=== PATIENT | female | born 1960 | race Caucasian/White ===

== ENCOUNTER 2025-07-19 16:27 | Inpatient (IN) | payer MEDICARE, SELFPAY ==
--- OUTSIDE RECORDS SUMMARY | 2025-05-24 16:00 | XMS_ITS ---
Author Organization [facility] Address [address] [place] [phone] Care Team Providers Care Grinder Hand Name Role Phone NO, PCP Primary Care Provider [facility], Nursing Unavailable [phone] Migration, Provider Unavailable Unavailable Allergies Allergen (clinical [...] Active Encounters Encounter Location Date Provider Diagnosis [address] [address] 05/24/2025 Provider Migration Plan Of Treatment Medication Medication Name Sig Start Date Stop Date Notes Paxil 20 MG 1 tab(s) orally once a day Progress Notes * Kathy BETTS (Jeni): (65 yo F)Acc No.[id number]:05/24/2025 Patient: Kathy KEENE (Jeni) Provider: :1960 A ge:65 Y S ex:Female Date:05/24/2025 Address:[address] [place], [place] [id number] Pcp:PCP NO Subjective: * Chief Complaints: * 1 . Multum To Medispan Conversion Encounter. * Medical History: * Allergies: T RIPLE ATIBIOTIC CREAM: hives and blisters. Objective: * Vitals: Assessment: Plan: * Treatment: * Images: Billing Information: * Visit Code: * Procedure Codes: * Electronic signature of Prov ider Migration on 07/19/2025 at 07:54 PM EST Sign off status: Pending * Provider: Date: 0 05/24/2025 Generated for Zuleyma vega/Ange/Logan on: 1 09/18/2024 07:54 PM EST
--- OUTSIDE RECORDS SUMMARY | 2025-07-14 07:55 | XMS_ITS | Continuity of Care Document ---
Author Organization [facility] Address [address] [place] [phone] Care Team Providers Care Lumber Carrier Name Role Phone Not on Staff, PCP Primary Care Physician Unavail able [place] [facility] [place] - 07/14/[address] [address]- Discharge Disposition: A-D/C Walkout Attending Physician: Not on Staff, Attending MD Admitting Physician: Not on Staff, Admitting MD Referring Physician: Not on Staff, Referring MD Encounter Type: Disch ES Allergies, Adverse Reactions, Alerts Substance Criticality Severity Reaction Reaction Severity Status Bactrim Active traMADol itching Active Medications Codeine 30mg/Acetaminophen 300mg Tablet 1 tablet, By Mouth, 3 times a day, PRN Pain , Moderate, 0 Refills, Maintenance, 03/11/20 12:58:00 PM EDT Start Date: 03/11/20 Status: Ordered Medication Dispense Status: Completed Total Allowed Fills: 1 Fills Dispensed: 0 Excedrin Migraine oral tablet 2 tablet, By Mouth, one to two times daily as needed for migraines, 0 Refills, Maintenance, 03/19/20 1:37:00 PM EDT Start Date: 03/19/20 Status: Ordered Medication Dispense Status: Completed Total Allowed Fills: 1 Fills Dispensed: 0 Lasix 40 mg oral tablet 40 mg, 1, tablet, By Mouth, Daily, # 7 tablet, Refills 0, Tot. Refills 0, Maintenance, 07/13/25 3:52:00 AM EST, Route to Pharmacy Electronically, [facility]/pharmacy #[id number], Partial fill upon patient request if the prescription is for a schedule II opioid drug., 152, cm, 07/13/25 3:48:00 EST, Height, 65.7, kg, 07/13/25 3:48:00 EST, Dry Weight Start Date: 07/13/25 Stop Date: 07/20/25 Status: Ordered Medication Dispense Status: Completed Quantity: 7.0 Unit: tablet Total Allowed Fills: 1 Fills Dispensed: 0 metFORMIN 500 mg oral tablet 1 tablet = 500 mg, By Mouth, 2 times a day, # 60 tablet, 0 Refills, Maintenance, 07/10/25 8:08:00 AM EDT, Tablet, [facility], Partial fill upon patient request if the prescription is for a schedule II opioid drug., 165, cm, 07/09/25 20:11:00 EDT, Height, 67, kg, 07/09/25 20:11:00 EDT,Dry Weight Start Date: 07/10/25 Status: Ordered Medication Dispense Status: Completed Quantity: 60.0 Unit: tablet Total Allowed Fills: 1 Fills Dispensed: 0 metFORMIN 500 mg oral tablet 1 tablet = 500 mg, By Mouth, 2 times a day, with meals, # 60 tablet, 0 Refills, Maintenance, 07/02/25 3:00:00 PM EDT, Tablet, [id number], Partial fill upon patient request if the prescription is for a schedule II opioid drug., 164, cm, 07/02/25 14:22:00 EDT, Height, 64.3, kg, 07/02/25 14:22:00 EDT, Dry Weight Start Date: 07/02/25 Status: Ordered Medication Dispense Status: Completed Quantity: 60.0 Unit: tablet Total Allowed Fills: 1 Fills Dispensed: 0 Mental Status Mental Status Assessment Assessment Assessment Component Result Effecti ve Date Andi coma score total 15 07/13/25 Vital Signs Most recent to oldest [Reference Range]: 1 2 Height 153 cm (07/13/25 11:07 PM) 153 cm (07/13/25 11:04 PM) Weight 65 kg (07/13/25 11:07 PM) 65 kg (07/13/25 11: PM) Oxygen Saturation [94-100 %] 99 % (07/14/25 3:02 AM) 100 % (07/13/25 11: PM) Pulse Rate [55-90 bpm] 95 bpm *H* (07/14/25 3:02 AM) 91 bpm *H* (07/13/25 11:04 PM) Body Mass Index [18.5-24.99 kg/m2] 27.77 kg/m2 *H* (07/13/25 11:04 PM) Blood Pressure [90-138/55-84 mm Hg] 141/ 83mm Hg *H* (07/14/25 3:02 AM) 129/86mm Hg (07/13/25 11:04 PM) Respiratory Rate [16-30 br/min] 16 br/mi n (07/14/25 3:02 AM) 18 br/min (07/13/25 11:04 PM) Temperature [96.8-100.4 DegF] 97.9 DegF (07/14/25 3:02 AM) 97.5 DegF (07/13/25 11:04 PM) Mode of Delivery (Oxygen) Room air (07/14/25 3:02 AM) Room air (07/13/25 11:04 PM) Blood pressure sites Arm, right (07/14/25 3:02 AM) Arm, left (07/13/25 11:04 PM) Temperature Route Oral (07/14/25 3:02 AM) Oral (07/13/25 11:04 PM) Dry Weight 65 kg (07/13/25 11:07 PM) 65 kg (07/13/25 11:04 PM) Weight Obtained Via Patient/family state d (07/13/25 11:07 PM) Standing scale (07/13/25 11:04 PM) Dry Weight Obtained Via Standing scale (07/13/25 11:04 PM) Social History Social History Type Response Smoking Status Former smoker, quit more than 30 days ago entered on: 07/03/25 Sex Sex Representation Female (finding) Status Not Patient Care team information Care Team Personnel Name: Not on Staff, PCP Position: S Physician (General Medicine) Member Role: PCP Care Team Related Persons Name: LORI BHATT Insurance Providers Guarantor name: CARLITA Health Plan Information #: 1 Payer: [employer] Payer Identifier: CARLITA Member Number: [id number] Group Number: [id number] Subscriber Identifier: [id number] Relationship to Subscriber: self Coverage Type: Self-pay (Includes applicants for insurance and Medicaid applicants) Coverage Verification Date: CARLITA Telecom: CARLITA Address:
--- NOTE | ~2025-07-19 | XR_ITS ---
CLINICAL HISTORY: weakness 2 view chest x-ray. Comparison: None Findings: No consolidation or effusion. Cardiac and mediastinal contours are unremarkable. Bones unremarkable. Impression: 1. No acute pulmonary disease. This document has been electronically signed by: Raymond Gonsalez MD on 07/19/2025 17:28:57
[2025-07-19 16:42] VITALS: BP 157/79; PULSE 102; RESP 18; TEMP 36.7; O2SAT 99; BMI 27.6
--- NOTE | 2025-07-19 16:47 | ECG_ITS ---
Test Reason : EXTREMITY Blood Pressure : */* mmHG Vent. Rate : 104 BPM Atrial Rate : 104 BPM P-R Int : 172 ms QRS Dur : 72 ms QT Int : 346 ms P-R-T Axes : 43 1 4 degrees QTcB Int : 454 ms Sinus tachycardia Possible Lateral infarct , age undetermined Abnormal ECG No previous ECGs available Referred By: Lawrence Arana Electronically Signed By: Nathanael Grajeda
--- NOTE | 2025-07-19 16:47 | ED.GENADULT ---
HPI - General Adult General Chief complaint: Extremity Problem Stated complaint: both legs swollen/feet hurt/diabetic Time Seen by Provider: 07/19/25 19:28 Source: patient and family ( Son) Mode of arrival: ambulatory Limitations: no limitations History of Present Illness ED Provider: DR. Sam HPI narrative: 65-year-old female brought in with her son for evaluation of bilateral ankle edema that is been going for the past month and worsening over the past 2 3 days, no shortness of breath, no pnd, no orthopnea, no fever, no chills, no coughing, no chest pain, no abdominal pain, no nausea, no vomiting, no diarrhea, no skin redness or hotness anywhere, no CP. Patient reports intermittent dysuria with frequency urination. Patient was recently diagnosed with diabetes and was recently started on metformin but noticed that her blood sugar is still running high. Related Data Home Medications ?Medication ?Instructions ?Recorded ?Confirmed metformin 500 mg tablet 500 mg PO BID 07/20/25 07/20/25 Allergies Allergy/AdvReac Type Severity Reaction Status Date / Time No Known Allergies Allergy Verified 07/19/25 16:45 Review of Systems Review of Systems: All other systems are reviewed and are negative Constitutional: Reports as per HPI and Reports no additional constitutional complaints Eyes: Reports as per HPI and Reports no additional eye complaints Reports system reviewed and no additional complaints, except as documented Cardiovascular: Reports as per HPI and Reports no additional cardiovascular complaints Respiratory: Reports as per HPI and Reports no additional respiratory complaints Gastrointestinal: Reports as per HPI and Reports no additional gastrointestinal complaints Genitourinary: Reports no additional female genitourinary complaints Musculoskeletal: Reports no additional musculoskeletal complaints Skin/Breast: Reports system reviewed and no additional complaints, except as docu Psychiatric: Reports no additional psychiatric complaints Endocrine: Reports no additional endocrine complaints Hematologic/Lymphatic: Reports no additional hematologic/lymphatic complaints Allergic/Immunologic: Reports no additional allergic/immunologic complaints Reports system reviewed and no additional complaints, except as documented and Reports Abnormal speech present [facility] Social History Social History Household Members: None Housing: Homeless Do you presently have visiting nurse or other home services: No Patient Tobacco Use Status: Former Tobacco user Smoked in Last 30 Days: No Patient Interested in Nicotine Replacement: No Use of substances other than those prescribed or required for medical reasons: No Currently Displaying Signs/Symptoms of Drug Intoxication Withdrawal: No Have you been hit, kicked, punched, or otherwise hurt by someone within the past year? If so, by whom?: No Do you feel safe in your current relationship?: No Current Relationship Is there a partner from a previous relationship who is making you feel unsafe now?: No Are you made to feel afraid or neglected: No Advance Directives: No Advance Directives Information Provided: No Do you have a plan to hurt others: No Plan Recently lost weight without trying: No Nutrition Risks: No Nutritional Risk Patient : No : No Poor oral hygiene: No service: No Physical Exam ED Vital Signs: Vital Signs - 24 hr 07/19/25 16:42 07/19/25 20:15 Temperature 98.0 F 98.2 F Pulse Rate 102 H 96 Respiratory Rate 18 16 Blood Pressure 157/79 H 130/74 Pulse Oximetry 99 97 Oxygen Delivery Method Room Air Room Air BMI result Body Mass Index 27.6 Vital signs have been reviewed and appear to be correct. Blood pressure elevated. Heart rate elevated. Respiratory rate normal. Temperature normal. Oxygen saturation normal. Appearance: Alert. Oriented X3. No acute distress. Head: Normal external exam. Normocephalic. Atraumatic. No Gonzalez signs noted. No raccoon eyes noted Eyes: PERRLA. EOMI. Conjunctiva and sclera normal. Eyelids normal. ENT: TM's Normal. Pharynx normal. Uvula midline. Moist mucous membranes. No trismus noted. No drooling noted. No muffled voice noted. Neck: Normal inspection. Neck supple. FROM. No adenopathy. Thyroid Normal. No meningeal signs. No neck mass noted. CVS: Normal heart rate and rhythm. Heart sound normal. No murmurs noted. Pulses normal throughout. Respiratory: No respiratory distress. Painless inspiration. Breath sounds normal. No wheezes/rales/rhonchi noted. Chest nontender. No accessory muscle usage noted or decreased air movement noted. Abdomen: Soft and nontender. Bowel sounds normal in all 4 quadrants. No distention noted. No organomegaly noted. No visible injury noted. Back: No CVA tenderness. Full range of motion noted. Skin: Skin warm and dry. Normal skin color. Normal skin turgor. No rashes/lesions/lacerations noted. Extremities: No lower extremity edema. Extremities exhibit normal range of motion. Extremities nontender. Neuro: Oriented X 3. Cranial nerve exam: II-XII are grossly intact No motor deficit. No sensory deficit. Reflexes normal. Course Course Course Narrative: Medical screening exam performed. Please refer to detailed history, exam, evaluation, and management by primary provider. Progress of the worsening lower extremity edema. No dyspnea on exertion. Hemodynamically stable at this time. Check labs, imaging; JS 5:37 p.m. glucose 379, lactic acid of 2.5. Reevaluation(s) Reevaluation #1: 65-year-old female presented for bilateral lower extremity swelling. Negative chest x-ray and exam for CHF. Uncontrolled newly diagnosed type 2 diabetes will start IV fluids, no DKA. UTI with sirs criteria and severe sepsis of elevated lactic acidosis patient received ceftriaxone and IV fluids will order serial lactic acid. Admit for further monitoring and manage diabetes and sepsis. Time: 21:00 Medications Administered Generic Name Dose Route Start Last Admin Trade Name Freq PRN Reason Stop Dose Admin Cyanocobalamin 1,000 mcg 07/21/25 09:00 07/21/25 08:34 Cyanocobalamin (Vitamin B-12) 1,000 Mcg Tablet PO 1,000 mcg DAILY [facility] Administration Enoxaparin Sodium 40 mg 07/19/25 21:00 07/20/25 20:08 Enoxaparin Sodium 40 Mg/0.4 Ml Syringe SUBCUT 40 mg Q24H [facility] Administration Folic Acid 1 mg 07/21/25 09:00 07/21/25 08:34 Folic Acid 1 Mg Tablet PO 1 mg DAILY [facility] Administration Ceftriaxone Sodium 1 gm/ 50 mls @ 100 mls/hr 07/20/25 20:00 07/20/25 20:38 Sodium Chloride IV Infused Q24H [facility] Infusion Insulin Glargine 10 unit 07/19/25 21:00 07/20/25 20:07 Insulin Glargine,Hum.Rec.Anlog 100 Unit/Ml 10 Ml Vial SUBCUT 10 unit BEDTIME [facility] Administration Insulin Human Lispro 0 unit 07/19/25 21:00 07/21/25 07:38 Insulin Lispro 100 Unit/Ml 3 Ml Vial SUBCUT 2 unit QIDACHS [facility] Administration Protocol Magnesium Oxide 400 mg 07/21/25 08:30 07/21/25 08:34 Magnesium Oxide 400 Mg Tablet PO 400 mg BIDPC [facility] Administration Oxycodone HCl 5 mg 07/20/25 02:42 07/21/25 08:34 Oxycodone Hcl Immed Release 5 Mg Tablet PO 5 mg Q6H PRN Administration Pain, Severe (Pain Scale 7-10) Pregabalin 50 mg 07/20/25 09:00 07/21/25 08:34 Pregabalin 50 Mg Capsule PO 50 mg TID [facility] Administration Sodium Chloride 3 ml 07/20/25 00:00 07/21/25 07:32 0.9 % Sodium Chloride Flush 3 Ml Syringe IVFLUSH 3 ml QSHIFT [facility] Administration Discontinued Medications Generic Name Dose Route Start Last Admin Trade Name Freq PRN Reason Stop Dose Admin Ceftriaxone Sodium 1 gm/ 50 mls @ 100 mls/hr 07/19/25 19:44 07/19/25 20:33 Sodium Chloride IV 07/19/25 20:13 Infused ONCE ONE Infusion Lactated Ringer's 1,000 mls @ 999 mls/hr 07/19/25 19:45 07/19/25 21:18 Lr IV 07/19/25 20:45 Infused .Q1H1M [facility] Infusion Lactated Ringer's 1,000 mls @ 100 mls/hr 07/19/25 21:00 07/20/25 08:27 Lr IVCONT Infused .Q10H [facility] Infusion Acetaminophen 1,000 mg in 100 mls @ 400 mls/hr 07/19/25 21:10 07/19/25 21:43 Ofirmev IV 07/19/25 21:24 Infused ONCE ONE Infusion Magnesium Sulfate 2 gm in 50 mls @ 25 mls/hr 07/21/25 07:02 07/21/25 07:27 Magnesium Sulfate/H2o IV 07/21/25 09:01 25 mls/hr ONCE ONE Administration Potassium Chloride 40 meq 07/20/25 08:25 07/20/25 08:34 Potassium Chloride Er 20 Meq Tab.Er.Prt PO 07/20/25 08:26 40 meq ONCE ONE Administration Medical Decision Making Differential Diagnosis Differential Diagnoses: The differential diagnosis associated with the presentation includes ( DKA, hyperglycemia, sepsis, pneumonia, UTI, pyelonephritis, electrolyte derangement, severe anemia, CHF, ACS.) Admission/Observation Consideration of admission/observation: Escalation of care including admission/observation considered Consult Healthcare Provider Management of the patient was discussed with: Hospitalist ( Dr. Leblanc) Lab Data MDM Lab Attestation statement: I reviewed the patient's lab results. 07/21/25 05:53 07/21/25 05:53 Labs: Lab Results 07/19/25 07/19/25 07/19/25 Range/Units 17:05 17:06 17:07 WBC 14.7 H (4.8-10.8) X10*3/uL RBC 5.14 (4.20-5.50) X10*6/uL Hgb 14.9 (12.0-16.0) g/dl Hct 43.2 (37.0-47.0) % MCV 84.0 (80.0-98.0) fL MCH 29.0 (27.0-33.0) pg MCHC 34.5 (31.0-35.0) g/dl RDW 12.6 (11.0-16.0) % Plt Count 334 (160-400) X10*3/uL MPV 10.9 (9.4-12.3) fL Immature Gran % (Auto) 0.4 (0.0-0.4) % Neut % (Auto) 67.5 (45-73) % Lymph % (Auto) 28.1 (20-40) % Page % (Auto) 3.2 (2-11) % Eos % (Auto) 0.5 (0-4) % Baso % (Auto) 0.3 (0-2) % Lymph # (Auto) 4.1 (1.2-4.9) X10*3/uL Page # (Auto) 0.5 (0.1-1.2) X10*3/uL Eos # (Auto) 0.1 (0.0-0.4) X10*3/uL Baso # (Auto) 0.1 (0.0-0.2) X10*3/uL Abs Immat Gran (auto) 0.06 H (0.00-0.03) X10*3/uL Absolute Neuts (auto) 9.9 H (2.0-8.3) x10*3/uL Absolute Nucleated RBC 0.000 (0.0-0.012) X10*3/uL Nucleated RBC % (auto) 0.0 (0.0-0.2) /100WBC Sodium 135 (135-145) mmol/L Potassium 3.4 (3.3-5.1) mmol/L Chloride 96 (96-108) mmol/L Carbon Dioxide 25 (22-29) mmol/L Anion Gap 17 (12-20) BUN 15 (9-16) mg/dL Creatinine 0.63 (0.5-1.4) mg/dL Estim Creat Clear Calc 74.4 Estimated GFR > 60 Random Glucose 379 H* (60-115) mg/dL Lactic Acid 2.5 H* (0.5-2.0) mmol/L Lactic Acid F/U @ 2Hr (0.5-2.0) mmol/L Calcium 9.7 (8.4-10.2) mg/dL Total Bilirubin 0.3 (0.0-1.0) mg/dL AST 18 (5-31) U/L ALT 24 (0-31) U/L Alkaline Phosphatase 87 (39-117) U/L Troponin I High Sens < 2.7 (<3.5-17.0) ng/L NT-Pro-B Natriuret Pep 16.4 (<300) pg/mL Total Protein 8.2 H (6.5-8.0) g/dL Albumin 4.9 (3.5-5.0) g/dL Lipase 74 (8-78) U/L Beta-Hydroxybutyrate 0.13 (0.02-0.27) mmol/L Urine Color Yellow Urine Appearance Clear Urine pH 5.5 (5.0-9.0) Ur Specific Wakeman >= 1.030 H (1.005-1.025) Urine Protein Negative (Neg-Trace) mg/dL Urine Glucose (UA) >=1000 H (Negative) mg/dL Urine Ketones Negative (Negative) mg/dL Urine Blood Negative (Negative) Urine Nitrite Negative (Negative) Ur Leukocyte Esterase Small (1+) H (Negative) Urine RBC 0-2 (0-2) /HPF Urine WBC 21-50 H (0-5) /HPF Ur Squamous Epith Cells 0-2 (0-2) /HPF Urine Bacteria 1+ (None Seen) Hyaline Casts 0-2 (0-2) /LPF 07/19/25 Range/Units 19:46 WBC (4.8-10.8) X10*3/uL RBC (4.20-5.50) X10*6/uL Hgb (12.0-16.0) g/dl Hct (37.0-47.0) % MCV (80.0-98.0) fL MCH (27.0-33.0) pg MCHC (31.0-35.0) g/dl RDW (11.0-16.0) % Plt Count (160-400) X10*3/uL MPV (9.4-12.3) fL Immature Gran % (Auto) (0.0-0.4) % Neut % (Auto) (45-73) % Lymph % (Auto) (20-40) % Page % (Auto) (2-11) % Eos % (Auto) (0-4) % Baso % (Auto) (0-2) % Lymph # (Auto) (1.2-4.9) X10*3/uL Page # (Auto) (0.1-1.2) X10*3/uL Eos # (Auto) (0.0-0.4) X10*3/uL Baso # (Auto) (0.0-0.2) X10*3/uL Abs Immat Gran (auto) (0.00-0.03) X10*3/uL Absolute Neuts (auto) (2.0-8.3) x10*3/uL Absolute Nucleated RBC (0.0-0.012) X10*3/uL Nucleated RBC % (auto) (0.0-0.2) /100WBC Sodium (135-145) mmol/L Potassium (3.3-5.1) mmol/L Chloride (96-108) mmol/L Carbon Dioxide (22-29) mmol/L Anion Gap (12-20) BUN (9-16) mg/dL Creatinine (0.5-1.4) mg/dL Estim Creat Clear Calc Estimated GFR Random Glucose (60-115) mg/dL Lactic Acid (0.5-2.0) mmol/L Lactic Acid F/U @ 2Hr 2.7 H* (0.5-2.0) mmol/L Calcium (8.4-10.2) mg/dL Total Bilirubin (0.0-1.0) mg/dL AST (5-31) U/L ALT (0-31) U/L Alkaline Phosphatase (39-117) U/L Troponin I High Sens (<3.5-17.0) ng/L NT-Pro-B Natriuret Pep (<300) pg/mL Total Protein (6.5-8.0) g/dL Albumin (3.5-5.0) g/dL Lipase (8-78) U/L Beta-Hydroxybutyrate (0.02-0.27) mmol/L Urine Color Urine Appearance Urine pH (5.0-9.0) Ur Specific Wakeman (1.005-1.025) Urine Protein (Neg-Trace) mg/dL Urine Glucose (UA) (Negative) mg/dL Urine Ketones (Negative) mg/dL Urine Blood (Negative) Urine Nitrite (Negative) Ur Leukocyte Esterase (Negative) Urine RBC (0-2) /HPF Urine WBC (0-5) /HPF Ur Squamous Epith Cells (0-2) /HPF Urine Bacteria (None Seen) Hyaline Casts (0-2) /LPF Independent Interpretation I performed an independent interpretation of an: Plain X-Ray ( chest: No acute intrathoracic pathology.) Radiology Impression Discussion of test interpretation with radiology: I have reviewed the radiologist's reading. Critical Care Time Critical Care Time Critical Care Time: Yes Total Critical Care Time: 60 Attestation: The patient was critically ill with a high probability of imminent or life-threatening deterioration. I spent greater than 30 minutes of discontinuous time evaluating the patient, delivering critical care at the bedside, discussing evaluating data with consultants. Critical care time does not include time spent performing separately billable procedures or teaching. Time spent performing critical care was 60 minutes. Discharge Plan Discharge Clinical Impression: Acute hyperglycemia, Acute UTI, Sepsis Patient Disposition: Admitted As Inpatient Interventions: Admission Worksheet (ED) Last Done: 07/19/25 23:59 Discharge Date/Time: 07/20/25 00:27
[2025-07-19 17:16] LABS: MANUAL DIFF FLAG NO
[2025-07-19 17:17] LABS: Hematocrit 43.2 % (37.0-47.0); Hemoglobin 14.9 g/dl (12.0-16.0); Imm Gran Abs Auto 0.06 X10*3/uL (0.00-0.03); Imm Gran Pct Auto 0.4 % (0.0-0.4); Lymphocytes Absolute Auto 4.1 X10*3/uL (1.2-4.9); Mean Corpuscular HGB Conc 34.5 g/dl (31.0-35.0); Mean Corpuscular Hemoglobin 29.0 pg (27.0-33.0); Mean Corpuscular Volume 84.0 fL (80.0-98.0); NRBC Abs Auto 0.000 X10*3/uL (0.0-0.012); NRBC Pct Auto 0.0 /100WBC (0.0-0.2); Platelet Count 334 X10*3/uL (160-400); Red Blood Count 5.14 X10*6/uL (4.20-5.50); White Blood Count 14.7 X10*3/uL (4.8-10.8)
[2025-07-19 17:27] LABS: Appearance Urine Clear; Glucose Urine UA >=1000 mg/dL (Negative); PH 5.5 (5.0-9.0); Specific Gravity - Urine >= 1.030 (1.005-1.025); UMIC TRIGGER UA YES
[2025-07-19 17:36] LABS: Alanine Aminotransferase 24 U/L (0-31); Albumin Level 4.9 g/dL (3.5-5.0); Alkaline Phosphatase 87 U/L (39-117); Anion Gap 17 (12-20); Aspartate Amino Transferase 18 U/L (5-31); Blood Urea Nitrogen 15 mg/dL (9-16); Calcium 9.7 mg/dL (8.4-10.2); Carbon Dioxide 25 mmol/L (22-29); Chloride 96 mmol/L (96-108); Creatinine Clr Calc Pharmacy 74.4; Estimated Glomerular Filt Rate > 60; Lipase 74 U/L (8-78); Potassium 3.4 mmol/L (3.3-5.1); Sodium 135 mmol/L (135-145); Total Protein 8.2 g/dL (6.5-8.0)
[2025-07-19 17:39] LABS: NT Pro B Type Natriuretic Pept 16.4 pg/mL (<300)
[2025-07-19 17:50] LABS: Troponin-I High Sensitivity < 2.7 ng/L (<3.5-17.0)
[2025-07-19 19:14] LABS: Reflex Lactate? Lactic Acid Added
--- OUTSIDE RECORDS SUMMARY | 2025-07-19 19:55 | XMS_ITS | Encounter Summary ---
Author Organization [facility], Address [address] [place] [address] Phone Care Team Providers Care Grinder Hardboard Name Role Phone Herberth Gutierrez MD Primary Care Provider [phone] Encounter Details Date Type Department Care Team (Late st Contact Info) Description 03/02/2020 Telephone [facility] [address] [place] [address] Ema Colin [address] [place] [phone] Social History Tobacco Use Types Packs/Day Years Used Date Smoking Tobacco: Never Assessed Comments Unknown Sex and Gender Information Value Date Recorded Sex Assigned at Not on file Legal Sex Female 1:31 PM EDT Gender Identity Not on file Sexual Orientation Not on file documented as of this encounter Plan of Treatment Not on file documented as of this encounter Visit Diagnoses Not on filedocumented in this encounter Care Teams Grinder Hardboard Relationship Specialty Start Date End Date Herberth Gutierrez MD [facility] [address] [place] [address] [address] [place], [place] PCP - General Internal Medicine 03/10/20 documented as of this encounter
--- OUTSIDE RECORDS SUMMARY | 2025-07-19 19:55 | XMS_ITS | Patient Health Record ---
Author Organization [facility] Address [address] [place] [address] Care Team Providers Care Tire And Tube Repairer Name Role Phone NO, PCP Primary Care Provider [phone] [facility], Nursing Unavailable [phone] [facility], W Unavailable [phone] Migration, Provider Unavailable Unavailable Allergies Allergen (clinical drug ingredient) Drug/Non Drug Allergy documented on EMR Reaction Allergy Type Onset Date Status TRIPLE ATIBIOTIC CREAM (uncoded) hives and blisters Allergy Active Reason For Referral No Information Medications Medication SIG (Take, Route, Frequency, Duration) Notes Start Date End Date Status Paxil 20 MG 1 tab(s) orally once a day Active Encounters Encounter Location Date Provider Diagnosis [address] [address] 07/07/[address] [address] 05/24/2025 Provider Migration Plan Of Treatment No Information Insurance Providers Payer Name Payer Address Payer Phone Subscriber Number Group Number Insured Name Patient Relationship to Insured Coverage Start Date Coverage End Date [place] Medicare Part A [employer] [address] [place] [address] [id number] Kathy Betts (Jeni) Self - patient is the insured 5 6 Medical (General) History Medical History History ICD Code depression
--- OUTSIDE RECORDS SUMMARY | 2025-07-19 19:55 | XMS_ITS | Clinical Summary ---
Author Organization [facility] Address [address] [place] [phone] Phone Care Team Providers Care Coffee Urn Attendant Name Role Phone Physician, No Pcp Primary Care Provider Unavaila ble Allergies No known active allergies Medications doxycycline (ADOXA) 100 mg tablet Take 1 tablet (100 mg total) by mouth 2 (two) times a day for 10 days. Take with a full glass of water and do not lie down for at least 30 minutes after 20 each 07/09/2025 Active Active Problems No known active problems Encounters Date Type Department Care Team Description 07/10/2025 9:17 PM EDT - 07/10/2025 10:[address] [facility] Emergency [address] [place] [address] Acute nonintractable headache, unspecified headache type (Primary Dx) Discharge Disposition: Home or Self Care 07/08/2025 7:51 PM EDT - 07/09/2025 12:51 AM EDT [facility] Emergency [address] [place] [id number] Type 2 diabetes mellitus with hyperglycemia, without long-term current use of insulin ([facility] V24, [facility] V28) (Primary Dx); Homeless; Cellulitis of right toe Discharge Disposition: Home or Self Care from Last 3 Months Medical History Medical History Date Comments Diabetes mellitus ([facility] V24, [facility] V28) Social History Tobacco Use Types Packs/Day Years Used Date Smoking Tobacco: Never Smokeless Tobacco: Never Tobacco Cessation:Counseling Given: Not Answered Comments Unknown Sex and Gender Information Value Date Recorded Sex Assigned at Not on file Legal Sex Female 11:32 PM EST Gender Identity Not on file Sexual Orientation Not on file Obstetrics History Last Filed Vital Signs Vital Sign Reading Time Taken Comments Blood Pressure 137/72 07/10/2025 9:15 PM EDT Pulse 95 07/10/2025 9:15 PM EDT Temperature 36.6 C (97.9 F) 07/10/2025 9:15 PM EDT Respiratory Rate 16 07/10/2025 9:15 PM EDT Oxygen Saturation 99% 07/10/2025 9:15 PM EDT Inhaled Oxygen Concentration - - Weight 65.8 kg (145 lb) 07/10/2025 9:15 PM EDT Height 160 cm (5' 2.99 ) 07/10/2025 9:15 PM EDT Body Mass Index 25.69 07/10/2025 9:15 PM EDT Plan of Treatment Health Maintenance Due Date Last Done Comments Breast Cancer Screening 1960 Colorectal Cancer Screening: Colonoscopy 1960 Diabetes: Annual Foot Exam 1970 Diabetes: Annual Retina Eye Exam 1970 DTaP,Tdap,and Td Vaccines (1 - Tdap) 1979 Pneumococcal Vaccine: 50+ Ye ars (1 of 2 - PCV) 1979 Cervical Cancer Screening: P ap Smear 1981 Zoster Vaccines (1 of 2) 2010 Depression Screening 09/11/2024 COVID-19 Vaccine (1 - 2023-2 5 season) 2025 Influenza Vaccine (#1) 2025 Cholesterol Screening (Lipid Panel) 07/08/2025 Diabetes: Annual Urine Albumin-Creatinine Ratio (uACR) 07/08/2025 Diabetes: Blood Sugar Contro l Test (HGBA1C) 07/08/2025 Falls Risk Assessment 07/08/2025 Hepatitis C Screening 07/08/2025 Medicare Annual Wellness Visit 07/08/2025 Osteoporosis Screening (Bone Density Screening) 07/08/2025 Social Influencers of Health Screening 07/08/2025 Diabetes: Annual GFR (Glomer ular Filtration Rate) 07/08/2026 07/08/2025 RSV Immunization Adult Patie nts (1 - 1-dose 75+ series) 2035 HIB Vaccines Aged Out No longer eligi ble based on patient's age to complete this topic HPV Vaccines Aged Out No longer eligi ble based on patient's age to complete this topic Hepatitis A Vaccines Aged Out No long er eligible based on patient's age to complete this topic Hepatitis B Vaccines Aged Out No long er eligible based on patient's age to complete this topic IPV Vaccines Aged Out No longer eligi ble based on patient's age to complete this topic MMR Vaccines Aged Out No longer eligi ble based on patient's age to complete this topic Meningococcal ACWY Vaccine Aged Out N o longer eligible based on patient's age to complete this topic Meningococcal B Vaccine Aged Out No l onger eligible based on patient's age to complete this topic RSV Immunization Patients Un heriberto 20 months Aged Out No longer eligible b ased on patient's age to complete this topic Varicella Vaccines Aged Out No longer eligible based on patient's age to complete this topic Procedures Procedure Name Priority Date/Time Associated Diagnosis Comments ECG ANNOTATED 07/11/2025 ECG 12-LEAD STAT 07/10/2025 9:27 PM EDT POCT GLUCOSE BLOOD Routine 07/09/2025 12 :01 AM EDT URINALYSIS WITH REFLEX MICROSCOPIC STAT 07/08/2025 11:59 PM EDT URINALYSIS WITH REFLEX MICROSCOPIC STAT 07/08/2025 11:59 PM EDT POCT GLUCOSE BLOOD Routine 07/08/2025 10 :13 PM EDT CBC WITH AUTO DIFFERENTIAL STAT 07/08/2025 8:30 PM EDT BETA HYDROXYBUTYRATE STAT 07/08/2025 8:30 PM EDT OSMOLALITY STAT 07/08/2025 8:30 PM EDT MAGNESIUM STAT 07/08/2025 8:30 PM EDT LIPASE STAT 07/08/2025 8:30 PM EDT COMPREHENSIVE METABOLIC PANEL STAT 07/08/2025 8:30 PM EDT CBC AND DIFFERENTIAL STAT 07/08/2025 8:30 PM EDT POCT GLUCOSE BLOOD Routine 07/08/2025 7: 53 PM EDT from Last 3 Months Results * ECG-Annotated (07/11/2025) us Provider Onbase MD ECG ORDERABLES Final Result * ECG 12 lead (07/10/2025 9:27 PM EDT) Ventricular Rate ECG 101 BPM GEMUSE Atrial Rate 101 BPM GEMUSE P-R Interval 192 ms GEMUSE QRS Duration 74 ms GEMUSE Q-T Interval 360 ms GEMUSE QTc 466 ms GEMUSE P Wave [place] 41 degrees GEMUSE R [place] 18 degrees GEMUSE T [place] 28 degrees GEMUSE ECG Interpretation Sinus tachycardia Otherwise normal ECG No previous ECGs available Confirmed by MD Sebastian, Dipak ([id number]) on 07/11/2025 9:09:24 PM GEMUSE 07/10/2025 9:27 PM EDT 07/11/2025 9:09 PM EDT Rae [facility] ECG ORDERABLES Final Re sult GEMUSE * (ABNORMAL) POCT Glucose, blood (07/09/2025 12:01 AM EDT) Only the most recent of3 resultswithin the time period is included. Glucose POCT 288(H) 70 - 100 mg/dL 07/09/2025 12:02 AM EDT [facility] Blood Capillary blood specimen / Unknown 07/09/2025 12:01 AM EDT 07/09/2025 12:03 AM EDT us Generic Provider Poct LAB POINT OF CARE TEST DOCKED DEVICE UNSOLICITED RESULTS Final Result [facility] [address] [place] [address], [place] [phone] * (ABNORMAL) Urinalysis with reflex microscopic (07/08/2025 11:59 PM EDT) Specific [place] Urine 1.021 1.003 - 1.030 LAB URINALYSIS - AUTOMATED METHOD 07/09/2025 12:50 AM [facility] pH, Urine 6.0 5.0 - 8.0 pH LAB URINALYSIS - AUTOMATED METHOD 07/09/2025 12:50 AM [facility] Leukocytes, Urine Moderate(A) Negative LAB URINALYSIS - AUTOMATED METHOD 07/09/2025 12:50 AM [facility] Nitrite, Urine Negative Negative LAB URINALYSIS - AUTOMATED METHOD 07/09/2025 12:50 AM [facility] Protein, Urine Negative <=Trace mg/dL LAB URINALYSIS - AUTOMATED METHOD 07/09/2025 12:50 AM [facility] Glucose, Urine >=1000(A) Negative mg/dL LAB URINALYSIS - AUTOMATED METHOD 07/09/2025 12:50 AM [facility] Ketones, Urine Negative Negative mg/dL LAB URINALYSIS - AUTOMATED METHOD 07/09/2025 12:50 AM [facility] Urobilinogen , Urine 1.0 0.2 - 1.0 mg/dL LAB URINALYSIS - AUTOMATED METHOD 07/09/2025 12:50 AM [facility] Bilirubin, Urine Negative Negative LAB URINALYSIS - AUTOMATED METHOD 07/09/2025 12:50 AM [facility] Blood, Urine Negative Negative LAB URINALYSIS - AUTOMATED METHOD 07/09/2025 12:50 AM [facility] RBC, Urine 1.8 0 - 4 /HPF LAB URINALYSIS - AUTOMATED METHOD 07/09/2025 12:50 AM [facility] WBC, Urine 31.7(H) 0 - 4 /HPF LAB URINALYSIS - AUTOMATED METHOD 07/09/2025 12:50 AM EDT [facility] Squamous Epithelial, Urine 63(H) 0 - 60 /LPF LAB URINALYSIS - AUTOMATED METHOD 07/09/2025 12:50 AM EDT [facility] Bacteria, Urine Few(A) Negative /HPF LAB URINALYSIS - AUTOMATED METHOD 07/09/2025 12:50 AM EDT [facility] Hyaline Casts, Urine 1.6 0 - 3 /LPF LAB URINALYSIS - AUTOMATED METHOD 07/09/2025 12:50 AM EDT [facility] Urine Urine specimen obtained by clean catch procedure / Unknown Non-blood Collection / Unknown 07/08/2025 11:59 PM EDT 07/09/2025 12:31 AM EDT [facility] LAB URINE ORDERABLES Fin al Result Performing Organization Address City/[facility]/ZIP Co de Phone Number [facility] [address] [place] [address], [place] [phone] * Beta hydroxybutyrate (07/08/2025 8:30 PM EDT) [facility] Beta-Hydroxybu tyrate 1.7 0.2 - 2.8 mg/dL LAB CHEMISTRY METHOD 07/08/2025 9:12 PM EDT [facility] Blood Venous blood specimen / Unknown Venipuncture / Unknown 07/08/2025 8:30 PM EDT 07/08/2025 8:34 PM EDT [facility] LAB BLOOD ORDERABLES Fin al Result [facility] [address] [place] [address], [place] [phone] * (ABNORMAL) CBC auto differential (07/08/2025 8:30 PM EDT) [facility] WBC 15.3(H) 4.8 - 10.8 K/[facility] LAB HEMETOLOGY METHOD 07/08/2025 8:39 PM [facility] RBC 4.80 3.80 - 4.80 M/mcL LAB HEMETOLOGY METHOD 07/08/2025 8:39 PM [facility] Hemoglobin 14.2 11.5 - 16.0 g/dL LAB HEMETOLOGY METHOD 07/08/2025 8:39 PM [facility] Hematocrit 40.3 35.0 - 47.0 % LAB HEMETOLOGY METHOD 07/08/2025 8:39 PM [facility] MCV 83.8 79.0 - 98.0 FL LAB HEMETOLOGY METHOD 07/08/2025 8:39 PM [facility] MCH 29.5 27.0 - 32.0 pcg LAB HEMETOLOGY METHOD 07/08/2025 8:39 PM [facility] MCHC 35.2 32.0 - 37.0 g/dL LAB HEMETOLOGY METHOD 07/08/2025 8:39 PM [facility] RDW 12.1 11.0 - 15.0 % LAB HEMETOLOGY METHOD 07/08/2025 8:39 PM [facility] Platelets 292 130 - 400 K/[facility] LAB HEMETOLOGY METHOD 07/08/2025 8:39 PM [facility] MPV 10.9 7.0 - 11.0 FL LAB HEMETOLOGY METHOD 07/08/2025 8:39 PM [facility] NRBC 0.0 <1.0 % LAB HEMETOLOGY METHOD 07/08/2025 8:39 PM [facility] NRBC Absolute 0.00 <0.10 K/[facility] LAB HEMETOLOGY METHOD 07/08/2025 8:39 PM [facility] Neutrophils Relative 67.4 % LAB HEMETOLOGY METHOD 07/08/2025 8:39 PM EDT [facility] Lymphocytes Relative 28.1 % LAB HEMETOLOGY METHOD 07/08/2025 8:39 PM [facility] Monocytes Relative 3.5 % LAB HEMETOLOGY METHOD 07/08/2025 8:39 PM [facility] Eosinophils Relative 0.3 % LAB HEMETOLOGY METHOD 07/08/2025 8:39 PM [facility] Basophils Relative 0.4 % LAB HEMETOLOGY METHOD 07/08/2025 8:39 PM [facility] Immature Granulocytes Relative 0.3 % LAB HEMETOLOGY METHOD 07/08/2025 8:39 PM [facility] Neutrophils Absolute 10.32(H) 1.50 - 7.00 K/mcL LAB HEMETOLOGY METHOD 07/08/2025 8:39 PM [facility] Lymphocytes Absolute 4.30 1.00 - 5.00 K/mcL LAB HEMETOLOGY METHOD 07/08/2025 8:39 PM [facility] Monocytes Absolute 0.54 0.20 - 1.00 K/mcL LAB HEMETOLOGY METHOD 07/08/2025 8:39 PM [facility] Eosinophils Absolute 0.05 0.00 - 0.50 K/mcL LAB HEMETOLOGY METHOD 07/08/2025 8:39 PM [facility] Basophils Absolute 0.06 0.00 - 0.20 K/mcL LAB HEMETOLOGY METHOD 07/08/2025 8:39 PM [facility] Immature Granulocytes Absolute 0.04(H) 0.00 - 0.03 K/mcL LAB HEMETOLOGY METHOD 07/08/2025 8:39 PM [facility] Blood Venous blood specimen / Unknown Venipuncture / Unknown 07/08/2025 8:30 PM EDT 07/08/2025 8:34 PM EDT [facility] LAB BLOOD ORDERABLES Fin al Result Performing Organization Address [facility]/ZIP Co de Phone Number [facility] [address] [place] [address], [place] [phone] * (ABNORMAL) Osmolality (07/08/2025 8:30 PM EDT) [facility] Osmolality Angelo 305(H) 280 - 300 mOsm/kg LAB CHEMISTRY METHOD 07/08/2025 9:00 PM EDT [facility] Blood Venous blood specimen / Unknown Venipuncture / Unknown 07/08/2025 8:30 PM EDT 07/08/2025 8:34 PM EDT [facility] LAB BLOOD ORDERABLES Fin al Result Performing Organization Address [facility] de Phone Number [facility] [address] [place] [address], [place] [phone] * (ABNORMAL) Magnesium (07/08/2025 8:30 PM EDT) [facility] Magnesium 1.3(L) 1.9 - 2.6 mg/dL LAB CHEMISTRY METHOD 07/08/2025 9:12 PM EDT [facility] Blood Venous blood specimen / Unknown Venipuncture / Unknown 07/08/2025 8:30 PM EDT 07/08/2025 8:34 PM EDT [facility] LAB BLOOD ORDERABLES Fin al Result Performing Organization Address [facility]/ZIP Co de Phone Number [facility] [address] [place] [address], [place] [phone] * Lipase (07/08/2025 8:30 PM EDT) Lipase 28 13 - 75 unit/L LAB CHEMISTRY METHOD 07/08/2025 9:12 PM EDT [facility] Blood Venous blood specimen / Unknown Venipuncture / Unknown 07/08/2025 8:30 PM EDT 07/08/2025 8:34 PM EDT [facility] LAB BLOOD ORDERABLES Fin al Result [facility] [address] [place] [address], * (ABNORMAL) Comprehensive metabolic panel (07/08/2025 8:30 PM EDT) [facility] Sodium 135 133 - 145 mmol/L LAB CHEMISTRY METHOD 07/08/2025 9:14 PM [facility] Potassium 3.2(L) 3.5 - 5.5 mmol/L LAB CHEMISTRY METHOD 07/08/2025 9:14 PM [facility] Chloride 98 96 - 110 mmol/L LAB CHEMISTRY METHOD 07/08/2025 9:14 PM [facility] CO2 28 21 - 32 mmol/L LAB CHEMISTRY METHOD 07/08/2025 9:14 PM [facility] Anion Gap 9 3 - 11 LAB CHEMISTRY METHOD 07/08/2025 9:14 PM [facility] Glucose 368(H) 70 - 100 mg/dL LAB CHEMISTRY METHOD 07/08/2025 9:14 PM [facility] BUN 19 5 - 25 mg/dL LAB CHEMISTRY METHOD 07/08/2025 9:14 PM [facility] Creatinine 0.64 0.50 - 1.10 mg/dL LAB CHEMISTRY METHOD 07/08/2025 9:14 PM [facility] eGFR 98 >=60 mL/min/1. 73m2 LAB CHEMISTRY METHOD 07/08/2025 9:14 PM EDT [facility] Comment:Calculation based on the Chronic Kidney Disease Epidemiology Collaboration (CKD-EPI) equation refit without adjustment for race. BUN/Creatinine Ratio 29.7 LAB CHEMISTRY METHOD 07/08/2025 9:14 PM [facility] Calcium 10.0 8.5 - 10.5 mg/dL LAB CHEMISTRY METHOD 07/08/2025 9:14 PM [facility] AST (SGOT) 12 10 - 42 unit/L LAB CHEMISTRY METHOD 07/08/2025 9:14 PM [facility] ALT (SGPT) 23 10 - 60 unit/L LAB CHEMISTRY METHOD 07/08/2025 9:14 PM [facility] Alkaline Phosphatase 86 42 - 121 unit/L LAB CHEMISTRY METHOD 07/08/2025 9:14 PM [facility] Total Protein 7.5 6.0 - 8.0 g/dL LAB CHEMISTRY METHOD 07/08/2025 9:14 PM [facility] Albumin 3.9 3.2 - 5.0 g/dL LAB CHEMISTRY METHOD 07/08/2025 9:14 PM [facility] Total Bilirubin 0.3 0.0 - 1.4 mg/dL LAB CHEMISTRY METHOD 07/08/2025 9:14 PM [facility] Blood Venous blood specimen / Unknown Venipuncture / Unknown 07/08/2025 8:30 PM EDT 07/08/2025 8:34 PM EDT us [facility] LAB BLOOD ORDERABLES Fin al Result [facility] [address] [place] [address], from Last 3 Months Insurance MEDICARE Care Teams Coffee Urn Attendant Relationship Specialty Start Date End Date Physician, No Pcp PCP - General 07/08/25
--- OUTSIDE RECORDS SUMMARY | 2025-07-19 19:55 | XMS_ITS | Clinical Summary ---
Author Organization [facility] Facility Address [address] [place] [address], [place] [address] Care Team Providers Care Circuits Engineer Name Role Phone Herberth Gutierrez MD Primary Care Provider [phone] Social History Tobacco Use Types Packs/Day Years Used Date Smoking Tobacco: Never Assessed Comments Unknown Sex and Gender Information Value Date Recorded Sex Assigned at Not on file Legal Sex Female 1:31 PM EDT Gender Identity Not on file Sexual Orientation Not on file Plan of Treatment Health Maintenance Due Date Last Done Comments Breast Cancer Screening 1960 Colorectal Cancer Screening: Annual FOBT 2009 Colorectal Cancer Screening: Colonoscopy 2009 Colorectal Cancer Screening: Sigmoidoscopy 2009 Pneumococcal Vaccine: 50+ Ye ars (1 of 1 - PCV) 2010 Influenza Vaccine (#1) 2025 Hepatitis B Vaccine Aged Out No longe r eligible based on patient's age to complete this topic Insurance [address] [place] [address] [employer] Care Teams Circuits Engineer Relationship Specialty Start Date End Date Herberth Gutierrez MD [facility] [address] [place] [address] [address] [place], [place] PCP - General Internal Medicine 03/10/20
[2025-07-19 20:14] LABS: ~Lactic Acid-LAB USE ONLY 2.7 mmol/L (0.5-2.0)
[2025-07-19 20:15] VITALS: BP 130/74; PULSE 96; RESP 16; TEMP 36.8; O2SAT 97
[2025-07-19] MEDS: Lactated Ringers 1,000 ML 999 ML IV (20:15)
[2025-07-19 20:47] VITALS: BP 149/79; PULSE 90; RESP 18; TEMP 36.8; O2SAT 99
--- NOTE | 2025-07-19 20:58 | P.HPHOSP_ITS ---
History of Present Illness Date of Service: 07/19/25 Chief Complaint: Dysuria 65-year-old female with a past medical history of diabetes presented to the hospital today with a chief complaint of dysuria. Patient reports having dyspnea over the past couple days. Denies any blood in the urine. Denies any fevers and chills. Also reports having mild ankle swelling. Denies any shortness of breath or dyspnea on exertion. Denies any chest pain or palpitations. Review of all other systems is negative except mentioned above ER course: Per ER team, patient noted to have mild pedal edema. Chest x-ray negative. ProBNP within normal limits. Less concern for CHF. Urinalysis abnormal consistent with UTI. Given ceftriaxone. Blood glucose levels slightly elevated. Patient was recently started on metformin. [facility] Social History Smoked in Last 30 Days: No Use of substances other than those prescribed or required for medical reasons: No Advance Directives: No Advance Directives Information Provided: No Meds Allergies Allergy/AdvReac Type Severity Reaction Status Date / Time No Known Allergies Allergy Verified 07/19/25 16:45 Active Medications: Current Medications Acetaminophen (Acetaminophen 325 Mg Tablet) 650 mg PO Q6H PRN PRN Reason: Pain, Mild 1-3,fever,headache Calcium Carbonate (Calcium Carbonate 750 Mg Tab.Chew) 750 mg PO Q4H PRN PRN Reason: Heartburn Enoxaparin Sodium (Enoxaparin Sodium 40 Mg/0.4 Ml Syringe) 40 mg SUBCUT Q24H [facility] Lactated Ringer's (Lr) 1,000 mls @ 100 mls/hr IVCONT .Q10H [facility] Ceftriaxone Sodium 1 gm/ (Sodium Chloride) 50 mls @ 100 mls/hr IV Q24H [facility] Magnesium Hydroxide (Milk Of Magnesia 30 Ml Oral.Susp) 30 ml PO DAILY PRN PRN Reason: Constipation Melatonin (Melatonin 3 Mg Tablet) 6 mg PO BEDTIME PRN PRN Reason: Insomnia Sodium Chloride (0.9 % Sodium Chloride Flush 3 Ml Syringe) 3 [facility] Physical Exam 2 Vital Signs and Narrative: Vital Signs: Last Vital Signs Temp 98.3 F 07/19/25 20:47 Pulse 90 07/19/25 20:47 Resp 18 07/19/25 20:47 BP 149/79 H 07/19/25 20:47 Pulse Ox 99 07/19/25 20:47 O2 Del Method Room Air 07/19/25 20:47 BMI result Body Mass Index 27.6 Gen: Appears be in no acute distress HEENT: NCAT, Moist mucosa. Pulmonary: Vesicular breath sounds, fair air entry CVS: Normal S1-S2 Abdomen: BS+, Soft, Nontender Extremities: Warm well perfused; mild pedal edema present Neuro: Alert and awake. Results Labs 07/19/25 17:05 07/19/25 17:05 Labs: Laboratory Results - last 24 hr 07/19/25 07/19/25 07/19/25 17:05 17:06 17:07 MCV 84.0 MCH 29.0 MCHC 34.5 RDW 12.6 Plt Count 334 MPV 10.9 Immature Gran % (Auto) 0.4 Neut % (Auto) 67.5 Lymph % (Auto) 28.1 [place] % (Auto) 3.2 Eos % (Auto) 0.5 Baso % (Auto) 0.3 Lymph # (Auto) 4.1 [place] # (Auto) 0.5 Eos # (Auto) 0.1 Baso # (Auto) 0.1 Abs Immat Gran (auto) 0.06 H Absolute Neuts (auto) 9.9 H Absolute Nucleated RBC 0.000 Nucleated RBC % (auto) 0.0 Anion Gap 17 Estim Creat Clear Calc 74.4 Estimated GFR > 60 Random Glucose 379 H* Lactic Acid 2.5 H* Lactic Acid F/U @ 2Hr Calcium 9.7 Total Bilirubin 0.3 AST 18 ALT 24 Alkaline Phosphatase 87 Troponin I High Sens < 2.7 NT-Pro-B Natriuret Pep 16.4 Total Protein 8.2 H Albumin 4.9 Lipase 74 Beta-Hydroxybutyrate 0.13 Urine Color Yellow Urine Appearance Clear Urine pH 5.5 Ur Specific [place] >= 1.030 H Urine Protein Negative Urine Glucose (UA) >=1000 H Urine Ketones Negative Urine Blood Negative Urine Nitrite Negative Ur Leukocyte Esterase Small (1+) H Urine RBC 0-2 Urine WBC 21-50 H Ur Squamous Epith Cells 0-2 Urine Bacteria 1+ Hyaline Casts 0-2 07/19/25 19:46 MCV MCH MCHC RDW Plt Count MPV Immature Gran % (Auto) Neut % (Auto) Lymph % (Auto) [place] % (Auto) Eos % (Auto) Baso % (Auto) Lymph # (Auto) [place] # (Auto) Eos # (Auto) Baso # (Auto) Abs Immat Gran (auto) Absolute Neuts (auto) Absolute Nucleated RBC Nucleated RBC % (auto) Anion Gap Estim Creat Clear Calc Estimated GFR Random Glucose Lactic Acid Lactic Acid F/U @ 2Hr 2.7 H* Calcium Total Bilirubin AST ALT Alkaline Phosphatase Troponin I High Sens NT-Pro-B Natriuret Pep Total Protein Albumin Lipase Beta-Hydroxybutyrate Urine Color Urine Appearance Urine pH Ur Specific [place] Urine Protein Urine Glucose (UA) Urine Ketones Urine Blood Urine Nitrite Ur Leukocyte Esterase Urine RBC Urine WBC Ur Squamous Epith Cells Urine Bacteria Hyaline Casts Assessment and Plan (1) Acute UTI: Status: Acute Plan 65-year-old female with a past medical history of diabetes presented to the hospital today with a chief complaint of dysuria. UTI: Continue ceftriaxone Follow-up cultures Diabetes/hyperglycemia: Patient was recently started on metformin. Will keep the patient on Lantus 10 units plus sliding scale. Will obtain hemoglobin A1c. Peripheral edema: Supportive care. ProBNP within normal limits. Chest x-ray negative. Less concern for CHF. Patient denies SOB/VERONICA. DVT prophylaxis: Lovenox Code status: Full code Quality Stroke Does the patient have a stroke diagnosis?: No VTE Prior VTE?: No VTE Risk Level:: Medical - moderate - high VTE Device Contraindication: Treatment Not Indicated VTE Drug Contraindication: N/A - Med Ordered
[2025-07-19 21:22] VITALS: BP 133/79; PULSE 91; RESP 16; TEMP 36.6; O2SAT 100
[2025-07-19 21:31] LABS: Glucose, Whole Blood 293 mg/dL (60-115)
[2025-07-19 21:43] VITALS: BP 131/78; PULSE 94; RESP 16; O2SAT 97
[2025-07-19] MEDS: Lactated Ringers 1,000 ML 100 ML IVCONT (22:36)
[2025-07-19] MEDS: Insulin Glargine,Hum.rec.anlog 100 UNIT/ML 10 ML VIAL 10 UNIT SUBCUT (22:36)
[2025-07-19 23:17] VITALS: BP 137/74; PULSE 88; RESP 16; O2SAT 97
[2025-07-19 23:41] LABS: ~Lactic Acid-LAB USE ONLY 2.4 mmol/L (0.5-2.0)
[2025-07-20] VITALS (7 sets, daily range): BP systolic 108–130; BP diastolic 59–68; PULSE 78–96; RESP 16–18; TEMP 36.1–36.7; O2SAT 95–97; BMI 28.2
[2025-07-20] MEDS: oxyCODONE HCl Immed Release 5 MG TABLET PO ×3 (03:32→20:13)
[2025-07-20 03:44] LABS: Hemoglobin A1C 262.0253 umol/L; Total Hemoglobin (HGBA1C) 2271.9737 umol/L
--- NOTE | 2025-07-20 06:36 | PC.NURSE ---
pt is homeless new diabetic few weeks [place] [facility] [place]
[2025-07-20 06:45] LABS: Hematocrit 37.7 % (37.0-47.0); Hemoglobin 12.9 g/dl (12.0-16.0); Imm Gran Abs Auto 0.04 X10*3/uL (0.00-0.03); Imm Gran Pct Auto 0.3 % (0.0-0.4); Lymphocytes Absolute Auto 5.1 X10*3/uL (1.2-4.9); MANUAL DIFF FLAG SCAN; Mean Corpuscular HGB Conc 34.2 g/dl (31.0-35.0); Mean Corpuscular Hemoglobin 28.7 pg (27.0-33.0); Mean Corpuscular Volume 83.8 fL (80.0-98.0); NRBC Abs Auto 0.000 X10*3/uL (0.0-0.012); NRBC Pct Auto 0.0 /100WBC (0.0-0.2); Platelet Count 257 X10*3/uL (160-400); SCAN SMEAR FLAG 1; White Blood Count 11.7 X10*3/uL (4.8-10.8)
[2025-07-20 06:53] LABS: Anion Gap 12 (12-20); Blood Urea Nitrogen 13 mg/dL (9-16); Calcium 9.0 mg/dL (8.4-10.2); Carbon Dioxide 27 mmol/L (22-29); Chloride 102 mmol/L (96-108); Creatinine Clr Calc Pharmacy 94.7; Estimated Glomerular Filt Rate > 60; Potassium 3.2 mmol/L (3.3-5.1); Sodium 138 mmol/L (135-145)
--- NOTE | 2025-07-20 06:53 | PC.NURSE ---
Addendum entered by Amauri Craig RN 07/20/25 14:44: Son States understanding that He can not stay overnight sleeping over in the hospital. Original Note: Pt states she is Homeless, Son is in the room is Homeless also. Educated Son that he can not stay overnight and use the Hospital for his assisted, CM will be notified this AM.
[2025-07-20 06:59] LABS: Red Blood Count 4.50 X10*6/uL (4.20-5.50)
[2025-07-20 07:40] LABS: Glucose, Whole Blood 303 mg/dL (60-115)
[2025-07-20] MEDS: Lactated Ringers 1,000 ML 100 ML IVCONT (07:42)
[2025-07-20] MEDS: Potassium Chloride ER 20 MEQ TAB.ER.PRT 40 MEQ PO (08:34)
--- NOTE | 2025-07-20 09:39 | PHA.MEDREC ---
Pharmacy Consult ? Medication Reconciliation Pharmacy has completed the medication reconciliation. Spoke to patient and son at bedside
--- NOTE | 2025-07-20 10:18 | HO.PM.IMPN ---
Subjective Subjective Date of Service: 07/20/25 Interval History: ongoing bilateral foot and leg pain Physical Exam Exam: Exam: General: AO X 3, no acute distress, poor dentition Resp: CTA bilateral, no accessory muscles used CVS: S1,S2,RRR GI: soft, non tender, non distended Neuro: motor grossly intact, alert, poor memory , allodynia over bilateral legs, no edema Psych: appropriate affect, appropriate insight Vital Signs: Vital Signs: Last Vital Signs Temp 97.6 F 07/20/25 08:00 Pulse 82 07/20/25 08:00 Resp 18 07/20/25 08:00 BP 121/68 07/20/25 08:00 Pulse Ox 97 07/20/25 08:00 O2 Del Method Room Air 07/20/25 08:00 BMI result Body Mass Index 28.2 Objective Data Active Medications Acetaminophen (Acetaminophen 325 Mg Tablet) 650 mg PO Q6H PRN PRN Reason: Pain, Mild 1-3,fever,headache Calcium Carbonate (Calcium Carbonate 750 Mg Tab.Chew) 750 mg PO Q4H PRN PRN Reason: Heartburn Dextrose (Dextrose 50 % 25 Gm/50 Ml Syringe) 25 gm IVPUSH Q15M PRN; Protocol PRN Reason: per Hypoglycemia Standing Ord. Enoxaparin Sodium (Enoxaparin Sodium 40 Mg/0.4 Ml Syringe) 40 mg SUBCUT Q24H [facility] Last Admin: 07/19/25 22:39 Dose: 40 mg Documented By: CHOLO Glucose (Glucose Gel 15 Gm Gel..Gram.) 15 gm PO Q15M PRN; Protocol PRN Reason: per Hypoglycemia Standing Ord. Ceftriaxone Sodium 1 gm/ (Sodium Chloride) 50 mls @ 100 mls/hr IV Q24H [facility] Insulin Glargine (Insulin Glargine,Hum.Rec.Anlog 100 Unit/Ml 10 Ml Vial) 10 unit SUBCUT BEDTIME [facility] Last Admin: 07/19/25 22:36 Dose: 10 unit Documented By: CHOLO Insulin Human Lispro (Insulin Lispro 100 Unit/Ml 3 Ml Vial) 0 unit SUBCUT QIDACHS [facility]; Protocol Last Admin: 07/20/25 07:39 Dose: 8 unit Documented By: LISA Magnesium Hydroxide (Milk Of Magnesia 30 Ml Oral.Susp) 30 ml PO DAILY PRN PRN Reason: Constipation Melatonin (Melatonin 3 Mg Tablet) 6 mg PO BEDTIME PRN PRN Reason: Insomnia Oxycodone HCl (Oxycodone Hcl Immed Release 5 Mg Tablet) 5 mg PO Q6H PRN PRN Reason: Pain, Severe (Pain Scale 7-10) Last Admin: 07/20/25 03:32 Dose: 5 mg Documented By: VENKATESH Pregabalin (Pregabalin 50 Mg Capsule) 50 mg PO TID [facility] Last Admin: 07/20/25 08:34 Dose: 50 mg Documented By: LISA Sodium Chloride (0.9 % Sodium Chloride Flush 3 Ml Syringe) 3 ml IVFLUSH QSHIFT [facility] Last Admin: 07/20/25 07:05 Dose: Not Given Documented By: LISA Non-Admin Reason: IV Running Tramadol HCl (Tramadol Hcl 50 Mg Tablet) 50 mg PO Q6H PRN PRN Reason: Pain, Moderate(Pain Scale 4-6) Labs 07/20/25 05:38 07/20/25 05:38 Labs: Laboratory Results - last 24 hr 07/19/25 07/19/25 07/19/25 17:05 17:06 17:07 MCV 84.0 MCH 29.0 MCHC 34.5 RDW 12.6 Plt Count 334 MPV 10.9 Immature Gran % (Auto) 0.4 Neut % (Auto) 67.5 Lymph % (Auto) 28.1 [place] % (Auto) 3.2 Eos % (Auto) 0.5 Baso % (Auto) 0.3 Lymph # (Auto) 4.1 [place] # (Auto) 0.5 Eos # (Auto) 0.1 Baso # (Auto) 0.1 Abs Immat Gran (auto) 0.06 H Absolute Neuts (auto) 9.9 H Absolute Nucleated RBC 0.000 Nucleated RBC % (auto) 0.0 Smear Tech's Comments Anion Gap 17 Estim Creat Clear Calc 74.4 Estimated GFR > 60 POC Glucose Random Glucose 379 H* Estimat Average Glucose Hemoglobin A1c % Lactic Acid 2.5 H* Lactic Acid F/U @ 2Hr Lactic Acid F/U @ 4Hr Calcium 9.7 Total Bilirubin 0.3 AST 18 ALT 24 Alkaline Phosphatase 87 Troponin I High Sens < 2.7 NT-Pro-B Natriuret Pep 16.4 Total Protein 8.2 H Albumin 4.9 Lipase 74 Beta-Hydroxybutyrate 0.13 TSH Urine Color Yellow Urine Appearance Clear Urine pH 5.5 Ur Specific Lewis >= 1.030 H Urine Protein Negative Urine Glucose (UA) >=1000 H Urine Ketones Negative Urine Blood Negative Urine Nitrite Negative Ur Leukocyte Esterase Small (1+) H Urine RBC 0-2 Urine WBC 21-50 H Ur Squamous Epith Cells 0-2 Urine Bacteria 1+ Hyaline Casts 0-2 07/19/25 07/19/25 07/19/25 19:46 21:25 22:56 MCV MCH MCHC RDW Plt Count MPV Immature Gran % (Auto) Neut % (Auto) Lymph % (Auto) [place] % (Auto) Eos % (Auto) Baso % (Auto) Lymph # (Auto) [place] # (Auto) Eos # (Auto) Baso # (Auto) Abs Immat Gran (auto) Absolute Neuts (auto) Absolute Nucleated RBC Nucleated RBC % (auto) Smear Tech's Comments Anion Gap Estim Creat Clear Calc Estimated GFR POC Glucose 293 H Random Glucose Estimat Average Glucose 318 Hemoglobin A1c % 12.7 H Lactic Acid Lactic Acid F/U @ 2Hr 2.7 H* Lactic Acid F/U @ 4Hr 2.4 H* Calcium Total Bilirubin AST ALT Alkaline Phosphatase Troponin I High Sens NT-Pro-B Natriuret Pep Total Protein Albumin Lipase Beta-Hydroxybutyrate TSH Urine Color Urine Appearance Urine pH Ur Specific Lewis Urine Protein Urine Glucose (UA) Urine Ketones Urine Blood Urine Nitrite Ur Leukocyte Esterase Urine RBC Urine WBC Ur Squamous Epith Cells Urine Bacteria Hyaline Casts 07/20/25 07/20/25 05:38 07:35 MCV 83.8 MCH 28.7 MCHC 34.2 RDW 12.4 Plt Count 257 MPV 11.5 Immature Gran % (Auto) 0.3 Neut % (Auto) 51.4 Lymph % (Auto) 43.4 H [place] % (Auto) 3.7 Eos % (Auto) 0.9 Baso % (Auto) 0.3 Lymph # (Auto) 5.1 H [place] # (Auto) 0.4 Eos # (Auto) 0.1 Baso # (Auto) 0.0 Abs Immat Gran (auto) 0.04 H Absolute Neuts (auto) 6.0 Absolute Nucleated RBC 0.000 Nucleated RBC % (auto) 0.0 Smear Tech's Comments VERIFIED Anion Gap 12 Estim Creat Clear Calc 94.7 Estimated GFR > 60 POC Glucose 303 H Random Glucose 328 H Estimat Average Glucose Hemoglobin A1c % Lactic Acid Lactic Acid F/U @ 2Hr Lactic Acid F/U @ 4Hr Calcium 9.0 D Total Bilirubin AST ALT Alkaline Phosphatase Troponin I High Sens NT-Pro-B Natriuret Pep Total Protein Albumin Lipase Beta-Hydroxybutyrate TSH 2.39 Urine Color Urine Appearance Urine pH Ur Specific Lewis Urine Protein Urine Glucose (UA) Urine Ketones Urine Blood Urine Nitrite Ur Leukocyte Esterase Urine RBC Urine WBC Ur Squamous Epith Cells Urine Bacteria Hyaline Casts Assessment and Plan (1) Acute hyperglycemia: Status: Acute Plan 65F PMH DM, homelessness, presented with bilateral LE pain, found to have hyperglycemia and positive UA LE pain due to diabetic neuropathy, reports previous poor tolerance of gabapentin, will start lyrica no edema or evidence of chf DM2 with hyperlgycemia basal bolus insulin, diabetic education uti rocephin, follow up culture homelessness case management dvt prophylaxis - lovenox full code reason for continued hospitalization:awaiting cultures Quality Stroke Does the patient have a stroke diagnosis?: No VTE Prior VTE?: No VTE Risk Level:: Medical - moderate - high VTE Device Contraindication: Treatment Not Indicated VTE Drug Contraindication: N/A - Med Ordered
[2025-07-20 11:44] LABS: Glucose, Whole Blood 173 mg/dL (60-115)
--- NOTE | 2025-07-20 11:53 | PC.NURSE ---
DM education complete, pt able to administer own insulin via needle this afternoon, good technique, son at bedside also, states understanding.
--- NOTE | 2025-07-20 15:39 | MHC.CM.PN ---
CM MET WITH PT AND SON AT BEDSIDE THEY ARE BOTH HOMELESS AND STAY TOGETHER OUTSIDE, WHERE EVER POSSIBLE PT HAS A WHEEL CHAIR FOR DME SHE HAS NO PCP AND WAS DIAGNOSED WITH DM ABOUT 3 WEEKS AGO AT [facility] PT REPORTS SHE HAS COMPLETED A MH MELISA WITH SOMEONE FROM THE [facility] IN [place] ASSISTING HER IMM DELIVERED DCP TBD: RETURN TO THE STREET VS [facility] CM WILL NEED TO CALL [facility] TO DETERMINE IF PT CAN STAY NOW THAT JULY IS HERE, OR IF SHE OR SON HAVE BEEN BANNED PT WILL NEED TRANSPORT ARRANGED
[2025-07-20 16:38] LABS: Glucose, Whole Blood 186 mg/dL (60-115)
[2025-07-20] MEDS: Insulin Glargine,Hum.rec.anlog 100 UNIT/ML 10 ML VIAL 10 UNIT SUBCUT (20:07)
[2025-07-20] MEDS: 0.9 % Sodium Chloride Flush 3 ML SYRINGE IVFLUSH (20:09)
[2025-07-20 21:05] LABS: Glucose, Whole Blood 364 mg/dL (60-115)
[2025-07-20 23:34] LABS: Glucose, Whole Blood 143 mg/dL (60-115)
[2025-07-21 04:00] VITALS: BP 112/64; PULSE 81; RESP 18; TEMP 36.2; O2SAT 95
[2025-07-21 06:18] LABS: Hematocrit 39.5 % (37.0-47.0); Hemoglobin 13.5 g/dl (12.0-16.0); Mean Corpuscular HGB Conc 34.2 g/dl (31.0-35.0); Mean Corpuscular Hemoglobin 28.9 pg (27.0-33.0); Mean Corpuscular Volume 84.6 fL (80.0-98.0); NRBC Abs Auto 0.000 X10*3/uL (0.0-0.012); NRBC Pct Auto 0.0 /100WBC (0.0-0.2); Platelet Count 265 X10*3/uL (160-400); Red Blood Count 4.67 X10*6/uL (4.20-5.50); White Blood Count 13.0 X10*3/uL (4.8-10.8)
[2025-07-21 06:56] LABS: Anion Gap 15 (12-20); Blood Urea Nitrogen 13 mg/dL (9-16); Calcium 9.3 mg/dL (8.4-10.2); Carbon Dioxide 26 mmol/L (22-29); Chloride 103 mmol/L (96-108); Creatinine Clr Calc Pharmacy 89.3; Estimated Glomerular Filt Rate > 60; Magnesium 1.4 mg/dL (1.6-2.6); Potassium 3.7 mmol/L (3.3-5.1); Sodium 140 mmol/L (135-145)
[2025-07-21 07:08] LABS: Folate 6.8 ng/mL (> or = 4.0); Vitamin B12 217 pg/mL (200-900)
[2025-07-21] MEDS: Magnesium Sulfate/H2O 2 GM/50 ML PIGGYBACK IV (07:27)
[2025-07-21] MEDS: 0.9 % Sodium Chloride Flush 3 ML SYRINGE IVFLUSH (07:32)
[2025-07-21 07:33] VITALS: BP 117/59; PULSE 86; RESP 16; TEMP 36.7; O2SAT 93
[2025-07-21 07:35] LABS: Glucose, Whole Blood 198 mg/dL (60-115)
--- NOTE | 2025-07-21 08:06 | HO.PM.IMPN ---
Subjective Subjective Date of Service: 07/21/25 Interval History: still with burning pain Physical Exam Exam: Exam: General: AO X 3, no acute distress, poor dentition Resp: CTA bilateral, no accessory muscles used CVS: S1,S2,RRR GI: soft, non tender, non distended Neuro: motor grossly intact, alert, poor memory , allodynia over bilateral legs, no edema Psych: appropriate affect, appropriate insight Vital Signs: Vital Signs: Last Vital Signs Temp 98.0 F 07/21/25 07:33 Pulse 86 07/21/25 07:33 Resp 16 07/21/25 07:33 BP 117/59 L 07/21/25 07:33 Pulse Ox 93 07/21/25 07:33 O2 Del Method Room Air 07/21/25 07:33 BMI result Body Mass Index 28.2 Objective Data Active Medications Acetaminophen (Acetaminophen 325 Mg Tablet) 650 mg PO Q6H PRN PRN Reason: Pain, Mild 1-3,fever,headache Calcium Carbonate (Calcium Carbonate 750 Mg Tab.Chew) 750 mg PO Q4H PRN PRN Reason: Heartburn Cyanocobalamin (Cyanocobalamin (Vitamin B-12) 1,000 Mcg Tablet) 1,000 mcg PO DAILY REPLACED BY [facility] Dextrose (Dextrose 50 % 25 Gm/50 Ml Syringe) 25 gm IVPUSH Q15M PRN; Protocol PRN Reason: per Hypoglycemia Standing Ord. Enoxaparin Sodium (Enoxaparin Sodium 40 Mg/0.4 Ml Syringe) 40 mg SUBCUT Q24H REPLAC[facility] Last Admin: 07/20/25 20:08 Dose: 40 mg Documented By: HIGINIO Folic Acid (Folic Acid 1 Mg Tablet) 1 mg PO DAILY REPLACED BY [facility] Glucose (Glucose Gel 15 Gm Gel..Gram.) 15 gm PO Q15M PRN; Protocol PRN Reason: per Hypoglycemia Standing Ord. Ceftriaxone Sodium 1 gm/ (Sodium Chloride) 50 mls @ 100 mls/hr IV Q24H REPLACED BY [facility] Last Infusion: 07/20/25 20:38 Dose: Infused Documented By: HIGINIO Magnesium Sulfate (Magnesium Sulfate/H2o) 2 gm in 50 mls @ 25 mls/hr IV ONCE ONE Stop: 07/21/25 09:01 Last Admin: 07/21/25 07:27 Dose: 25 mls/hr Documented By: EDIS Insulin Glargine (Insulin Glargine,Hum.Rec.Anlog 100 Unit/Ml 10 Ml Vial) 10 unit SUBCUT BEDTIME REPLACED [facility] Last Admin: 07/20/25 20:07 Dose: 10 unit Documented By: HIGINIO Insulin Human Lispro (Insulin Lispro 100 Unit/Ml 3 Ml Vial) 0 unit SUBCUT QIDACHS REPLACED BY [facility]; Protocol Last Admin: 07/21/25 07:38 Dose: 2 unit Documented By: EDIS Magnesium Hydroxide (Milk Of Magnesia 30 Ml Oral.Susp) 30 ml PO DAILY PRN PRN Reason: Constipation Magnesium Oxide (Magnesium Oxide 400 Mg Tablet) 400 mg PO BIDPC REPLACED BY [facility] Melatonin (Melatonin 3 Mg Tablet) 6 mg PO BEDTIME PRN PRN Reason: Insomnia Oxycodone HCl (Oxycodone Hcl Immed Release 5 Mg Tablet) 5 mg PO Q6H PRN PRN Reason: Pain, Severe (Pain Scale 7-10) Last Admin: 07/20/25 20:13 Dose: 5 mg Documented By: HIGINIO Pregabalin (Pregabalin 50 Mg Capsule) 50 mg PO TID REPLACED BY [facility] Last Admin: 07/20/25 20:08 Dose: 50 mg Documented By: HIGINIO Sodium Chloride (0.9 % Sodium Chloride Flush 3 Ml Syringe) 3 ml IVFLUSH QSHIFT REPLACED BY [facility] Last Admin: 07/21/25 07:32 Dose: 3 ml Documented By: EDIS Tramadol HCl (Tramadol Hcl 50 Mg Tablet) 50 mg PO Q6H PRN PRN Reason: Pain, Moderate(Pain Scale 4-6) Labs 07/21/25 05:53 07/21/25 05:53 Labs: Laboratory Results - last 24 hr 07/20/25 07/20/25 07/20/25 05:38 11:38 16:24 MCV MCH MCHC RDW Plt Count MPV Absolute Nucleated RBC Nucleated RBC % (auto) Anion Gap Estim Creat Clear Calc Estimated GFR POC Glucose 173 H 186 H Random Glucose Calcium Magnesium Vitamin B12 Folate TSH 2.39 07/20/25 07/20/25 07/21/25 20:57 23:29 05:53 MCV 84.6 MCH 28.9 MCHC 34.2 RDW 12.7 Plt Count 265 MPV 11.1 Absolute Nucleated RBC 0.000 Nucleated RBC % (auto) 0.0 Anion Gap 15 Estim Creat Clear Calc 89.3 Estimated GFR > 60 POC Glucose 364 H* 143 H Random Glucose 173 H Calcium 9.3 Magnesium 1.4 L* Vitamin B12 217 Folate 6.8 TSH 07/21/25 07:32 MCV MCH MCHC RDW Plt Count MPV Absolute Nucleated RBC Nucleated RBC % (auto) Anion Gap Estim Creat Clear Calc Estimated GFR POC Glucose 198 H Random Glucose Calcium Magnesium Vitamin B12 Folate TSH Microbiology Microbiology Results: Microbiology 07/19/25 19:50 Blood Culture - Preliminary Blood - Venous No growth after 24 hours. Assessment and Plan (1) Acute hyperglycemia: Status: Acute Plan 65F PMH DM, homelessness, presented with bilateral LE pain, found to have hyperglycemia and positive UA LE pain due to periopheral neuropathy - primarily diabetic b12 deficiency, folate deficiency, and hypogamnesemia also contributing, reports previous poor tolerance of gabapentin, started lyrica started b12 and folic acid supplement, replace magnesium no edema or evidence of chf DM2 with hyperlgycemia basal bolus insulin, diabetic education, improving uti rocephin, follow up culture homelessness case management dvt prophylaxis - lovenox full code reason for continued hospitalization:awaiting cultures, dispo planning Quality Stroke Does the patient have a stroke diagnosis?: No VTE Prior VTE?: No VTE Risk Level:: Medical - moderate - high VTE Device Contraindication: Treatment Not Indicated VTE Drug Contraindication: N/A - Med Ordered
[2025-07-21] MEDS: oxyCODONE HCl Immed Release 5 MG TABLET PO (08:34)
[2025-07-21 11:15] LABS: Glucose, Whole Blood 368 mg/dL (60-115)
[2025-07-21 11:21] VITALS: BP 117/57; PULSE 93; RESP 16; TEMP 36.1; O2SAT 94
--- NOTE | 2025-07-21 11:24 | P.DS_ITS ---
DS: Providers Provider Date of Service: 07/21/25 Date of admission: 07/19/25 20:56 Date of discharge: 07/21/25 Primary care physician: None Physician DS: Diagnosis Discharge Diagnosis (1) Acute hyperglycemia: Status: Acute DS: Summary Hospital Course Hospital Course: from initial hpi: 65-year-old female with a past medical history of diabetes presented to the hospital today with a chief complaint of dysuria. Patient reports having dyspnea over the past couple days. Denies any blood in the urine. Denies any fevers and chills. Also reports having mild ankle swelling. Denies any shortness of breath or dyspnea on exertion. Denies any chest pain or palpitations. Review of all other systems is negative except mentioned above ER course: Per ER team, patient noted to have mild pedal edema. Chest x-ray negative. ProBNP within normal limits. Less concern for CHF. Urinalysis abnormal consistent with UTI. Given ceftriaxone. Blood glucose levels slightly elevated. Patient was recently started on metformin. hospital course: Patient was admitted for lower extremity pain due to peripheral neuropathy primarily due to diabetic neuropathy but component of B12 deficiency, folate deficiency and hypomagnesemia. Previously did not tolerate gabapentin so was started on Lyrica. Also started on B12 and folic acid supplement and magnesium. For diabetes with hyperglycemia was started on basal bolus insulin and metformin should be increased on discharge. For urinary tract infection was treated ceftriaxone, on discharge we will do 5 more days of cefuroxime, culture should be followed up and antibiotics adjusted as needed. For homelessness information shelters was provided. Time Attestation Discharge Coordination Time (in mins): 33 Quality: Safe Use of Opioids Does Pt have an Active Cancer Diagnosis on the Problem List?: No Quality: Stroke Does the patient have a stroke diagnosis?: No Physical Exam Exam: Exam: General: AO X 3, no acute distress, poor dentition Resp: CTA bilateral, no accessory muscles used CVS: S1,S2,RRR GI: soft, non tender, non distended Neuro: motor grossly intact, alert, poor memory , allodynia over bilateral legs, no edema Psych: appropriate affect, appropriate insight Vital Signs: Vital Signs: Last Vital Signs Temp 97.0 F 07/21/25 11:21 Pulse 93 07/21/25 11:21 Resp 16 07/21/25 11:21 BP 117/57 L 07/21/25 11:21 Pulse Ox 94 07/21/25 11:21 O2 Del Method Room Air 07/21/25 11:21 BMI result Body Mass Index 28.2 DS: Data Data Completed and Pending Labs on day of discharge: Laboratory Results - last 24 hr 07/20/25 07/20/25 07/20/25 11:38 16:24 20:57 WBC RBC Hgb Hct MCV MCH MCHC RDW Plt Count MPV Absolute Nucleated RBC Nucleated RBC % (auto) Sodium Potassium Chloride Carbon Dioxide Anion Gap BUN Creatinine Estim Creat Clear Calc Estimated GFR POC Glucose 173 H 186 H 364 H* Random Glucose Calcium Magnesium Vitamin B12 Folate 07/20/25 07/21/25 07/21/25 23:29 05:53 07:32 WBC 13.0 H RBC 4.67 Hgb 13.5 Hct 39.5 MCV 84.6 MCH 28.9 MCHC 34.2 RDW 12.7 Plt Count 265 MPV 11.1 Absolute Nucleated RBC 0.000 Nucleated RBC % (auto) 0.0 Sodium 140 Potassium 3.7 Chloride 103 Carbon Dioxide 26 Anion Gap 15 BUN 13 Creatinine 0.53 Estim Creat Clear Calc 89.3 Estimated GFR > 60 POC Glucose 143 H 198 H Random Glucose 173 H Calcium 9.3 Magnesium 1.4 L* Vitamin B12 217 Folate 6.8 07/21/25 11:11 WBC RBC Hgb Hct MCV MCH MCHC RDW Plt Count MPV Absolute Nucleated RBC Nucleated RBC % (auto) Sodium Potassium Chloride Carbon Dioxide Anion Gap BUN Creatinine Estim Creat Clear Calc Estimated GFR POC Glucose 368 H* Random Glucose Calcium Magnesium Vitamin B12 Folate Preliminary micro results at discharge 07/19/25 19:55 Blood Culture - Preliminary Blood - Venous No growth after 24 hours. 07/19/25 19:50 Blood Culture - Preliminary Blood - Venous No growth after 24 hours. Discharge Plan Discharge Anticipated Discharge Date/Time: 07/21/25 11:20 Patient Disposition: Assisted Discharge Diagnosis: uti, hyperglycemia, neuropathy Referrals: Physician,None [Primary Care Provider, Medical] - 1 Week Discharge Medications: New insulin glargine [Lantus U-100 Insulin] 100 unit/mL Solution 10 unit subcut BEDTIME 90 Days Qty: 9 0RF cyanocobalamin (vitamin B-12) [Vitamin B-12] 1,000 mcg Tablet 1,000 mcg PO DAILY 90 Days Qty: 90 0RF folic acid 1 mg Tablet 1 mg PO DAILY 90 Days Qty: 90 0RF pregabalin 50 mg Capsule 50 mg PO TID 90 Days Qty: 270 0RF (DME) FreeStyle Lite Strips Strip Qty: 100 0RF Rx Instructions: Test four times a day or as directed. (DME) blood-glucose meter [FreeStyle Lite Meter] Kit Qty: 1 0RF Rx Instructions: As Directed alcohol swabs Pads, Medicated 1 pad TOPICAL QIDACHS Qty: 100 0RF Rx Instructions: Use four times a day or as directed. cefuroxime axetil 500 mg tablet 500 mg PO BID Qty: 10 0RF insulin lispro [Humalog KwikPen Insulin] 100 unit/mL insulin pen 0 sliding scale dose SUBCUT QIDACHS Qty: 15 0RF Rx Instructions: Blood Sugar: <150 - 0 units 151-200 - 2 units 201-250 - 4 units 251-300 - 6 units 301-350 - 8 units >350 - 10 units (DME) pen needle, diabetic 32 gauge x 1/4 needle Qty: 100 0RF Rx Instructions: Use four times a day or as directed. (DME) lancets [FreeStyle Lancets] 28 gauge misc Qty: 100 0RF Rx Instructions: Test four times a day or as directed. Changed metformin 500 mg tablet 1,000 mg PO BID 90 Days Qty: 360 0RF Discharge Orders: Discharge Order (Routine); Ordered 07/21/25 Ordered By: Bereket Morales Diet: Diabetic diet Activity on Discharge: As tolerated Stand Alone Forms: Patient Portal Discharge page Print Language: [place] Care Plan Goals: Manage neuropathy and diabetes Health Concerns: Diabetic neuropathy, B12 and folate deficiency, uncontrolled diabetes Plan of Treatment: Start insulin and monitor sugars, start B12 and folate supplements, can use Lyrica for neuropathy, 5 more days of Ceftin, follow up urine culture and change if needed Assessment: See above Patient Instructions: Type 2 Diabetes in Adults: New Diagnosis (DC), How to Give an Insulin Injection (GEN)
--- NOTE | 2025-07-21 11:53 | MHC.CM.PN ---
CALLED AND SPOKE WITH FRIENDS OF THE [facility] /[facility] WHO WILL NOT ACCEPT PT BACK BECAUSE BEYOND OUR SCOPE OF BEING ABLE TO KEEP HER SAFE PT AND SON IMFORMED OF SAME LIST OF SHELTERS AND PCP AND CHD GIVEN TO PRT AND HER SON PT BEING DCD BACK TO THE STREETS
== END 2025-07-21 13:21 | disposition home or self-care (01) | DRG 638 ==
LOC: HO.ED 19:56 → HO.EDOVER 21:34 → HO.S3 23:54
PROVIDERS: Physician Assistant; Admitting Provider Hospitalist; Emergency Provider Emergency Medicine; Visit Provider Internal Medicine
DX: E11.65 Type 2 diabetes mellitus with hyperglycemia (principal); N39.0 Urinary tract infection, site not specified; Z59.02 Unsheltered homelessness; E11.42 Type 2 diabetes mellitus with diabetic polyneuropathy; Z87.891 Personal history of nicotine dependence; Z79.4 Long term (current) use of insulin; Z79.84 Long term (current) use of oral hypoglycemic drugs; Z79.899 Other long term (current) drug therapy
CPT/HCPCS: 36415; 71046; 80048; 80053; 81001; 82010; 82607; 82746; 82947; 83036; 83605; 83690; 83735; 83880; 84443; 84484; 85025; 85027; 87040; 87086; 87147; 93005; 99285; J0131; J0696; J1650; J3475; J7120

== ENCOUNTER → 2025-07-19 16:47 | Outpatient (BNV) | payer MEDICARE, SELFPAY | PROVIDERS: Admitting Provider Hospitalist; Emergency Provider Emergency Medicine; Visit Provider Internal Medicine Cardiovascular Disease | DX: R00.0 Tachycardia, unspecified (principal) | CPT/HCPCS: 93010 ==

== ENCOUNTER → 2025-07-19 20:56 | Outpatient (BNV) | payer MEDICARE, SELFPAY | PROVIDERS: Admitting Provider Hospitalist; Emergency Provider Emergency Medicine; Visit Provider Internal Medicine | DX: N39.0 Urinary tract infection, site not specified (principal); R73.9 Hyperglycemia, unspecified | CPT/HCPCS: 99223; 99233 ==

== ENCOUNTER 2025-07-29 18:02 | Emergency (ER) | payer MEDICARE, MEDICAID, SELFPAY ==
--- OUTSIDE RECORDS SUMMARY | 2025-05-24 16:00 | XMS_ITS ---
Author Organization [facility] Address [address] [place] [phone] Care Team Providers Care Cardiology Specialist Name Role Phone NO, PCP Primary Care Provider [facility], Nursing Unavailable [phone] Migration, Provider Unavailable Unavailable Allergies Allergen (clinical drug ingredient) Drug/Non Drug Allergy documented on EMR Reaction Allergy Type Onset Date Status TRIPLE ATIBIOTIC CREAM (uncoded) hives and blisters Allergy Active REASON FOR VISIT Multum To Medispan Conversion Encounter Medications Medication SIG (Take, Route, Frequency, Duration) Notes Start Date End Date Status Paxil 20 MG 1 tab(s) orally once a day Active Encounters Encounter Location Date Provider Diagnosis [address] [address] 05/24/2025 Provider Migration Plan Of Treatment Medication Medication Name Sig Start Date Stop Date Notes Paxil 20 MG 1 tab(s) orally once a day Next Appt Details Provider Name:Quentindarryldavid boo, 08/04/2025 10:00:00 AM, [address] [place] [address], [phone], Progress Notes * Kathy BETTS (Jeni): (65 yo F)Acc No.[id number]:05/24/2025 Patient: Yrn RAVIKathy (Jeni) Provider: :1960 A ge:65 Y S ex:Female Date:05/24/2025 Address:[address] [place], [place] [phone] Pcp:PCP NO Subjective: * Chief Complaints: * 1 . Multum To Medispan Conversion Encounter. * Medical History: * Allergies: T RIPLE ATIBIOTIC CREAM: hives and blisters. Objective: * Vitals: Assessment: Plan: * Treatment: * Images: Billing Information: * Visit Code: * Procedure Codes: * Electronic signature of Prov ider Migration on 07/30/2025 at 02:04 PM EST Sign off status: Pending * Provider: Date: 0 05/24/2025 Generated for Zuleyma vega/Ange/Logan on: 09/29/2024 02:04 PM EST
--- OUTSIDE RECORDS SUMMARY | 2025-07-25 11:59 | XMS_ITS | Continuity of Care Document ---
Author Organization [facility] ter Address [address] [place] [id number]- Care Team Providers Care Electrical Project Manager Name Role Phone Not on Staff, PCP Primary Care Physician Unavail able [place] [facility] [place] - 07/25/[address] [address]- Encounter Diagnosis Hyperglycemia(Final) - 07/25/25 Discharge Disposition: A-D/C Home Attending Physician: Marjorie Vidal MD Admitting Physician: Marjorie Vidal MD Referring Physician: Not on Staff, Referring [...] Total Allowed Fills: 1 Fills Dispensed: 0 Lantus 100 u/ml subcutaneous solution = 10 units, Subcutaneous Infusion, Daily, # 10 mL, 0 Refills, Maintenance, 07/25/25 2:19:00 PM EST,[id number], Partial fill upon patient request if the prescription is for a schedule II opioid drug., 153, cm, 07/25/25 14:15:00 EST, Height, 65, kg, 07/25/25 7:46:00 EST, Dry Weight Start Date: 07/25/25 Status: Ordered Medication Dispense Status: Completed Quantity: 10.0 Unit: mL Total Allowed Fills: 1 Fills Dispensed: 0 Lasix 40 mg oral tablet 40 mg, 1, tablet, By Mouth, Daily, # 7 tablet, Refills 0, Tot. Refills 0, Maintenance, 07/13/25 3:52:00 AM EST, Route to Pharmacy Electronically, [facility]/pharmacy #[id number], Partial fill upon patient request if the [...] Refills, Maintenance, 07/10/25 8:08:00 AM EDT, Tablet, [facility], Partial fill upon patient request if [...] Assessment Assessment Component Result Effecti ve Date [place] coma score total 15 Vital Signs Most recent to oldest [Reference Range]: 1 2 3 Height 153 cm (07/25/25 7:46 AM) 153 cm (07/24/25 7:59 PM) Weight 65 kg (07/25/25 7:46 AM) 65 kg (07/24/25 7:59 PM) Oxygen Saturation [94-100 %] 98 % (07/25/25 9:45 AM) 99 % (07/25/25 7:46 AM) 99 % (07/25/25 12:15 AM) Pulse Rate [55-90 bpm] 85 bpm (07/25/25 9:45 AM) 99 bpm *H* (07/25/25 7:46 AM) 100 bpm *H* (07/25/25 12:15 AM) Body Mass Index [18.5-24.99 kg/m2] 27.77 kg/m2 *H* (07/25/25 7:46 AM) 27.77 kg/m2 *H* (07/24/25 7:59 PM) Blood Pressure [90-138/55-84 mm Hg] 112/71mm Hg (07/25/25 9:45 AM) 140/72mm Hg *H* (07/25/25 7:46 AM) 137/82mm Hg (07/25/25 12:15 AM) Respiratory Rate [16-30 br/min] 18 br/min (07/25/25 9:45 AM) 16 br/min (07/25/25 7:46 AM) 18 br/min (07/25/25 12:15 AM) Temperature [96.8-100.4 DegF] 97.9 DegF (07/25/25 9:45 AM) 98 DegF (07/25/25 7:46 AM) 98.7 DegF (07/25/25 12:15 AM) Mode of Delivery (Oxygen) Room air (07/25/25 9:45 AM) Room air (07/25/25 7:46 AM) Room air (07/25/25 12:15 AM) Blood pressure sites Arm, left (07/25/25 9:45 AM) Arm, left (07/25/25 7:46 AM) Arm, left (07/25/25 12:15 AM) Temperature Route Oral (07/25/25 9:45 AM) Oral (07/25/25 7:46 AM) Oral (07/25/25 12:15 AM) Dry Weight 65 kg (07/25/25 7:46 AM) 65 kg (07/24/25 7:59 PM) Weight Obtained Via Standing scale (07/24/25 7:59 PM) Dry Weight Obtained Via Standing scale (07/24/25 7:59 PM) Social History Social History Type Response [...] CAR[employer]ITA Health Plan Information #: 1 Payer: MEDICARE B Payer Identifier: CARLITA Member Number: [id number] Group Number: Subscriber Identifier: [id number] Relationship to Subscriber: self Coverage Type: NA Coverage Verification Date: NA Telecom: NA Address: Health Plan Information #: 2 Payer: [employer] Payer Identifier: Member Number: [id number] Group Number: Subscriber Identifier: [id number] Relationship to Subscriber: self Coverage Type: MEDICAID Coverage Verification Date: NA Telecom: NA Address:
--- OUTSIDE RECORDS SUMMARY | 2025-07-27 10:46 | XMS_ITS | Continuity of Care Document ---
Author Organization [facility] ter Address [address] [place] [id number]- Care Team Providers Care Bit Setter Name Role Phone Not on Staff, PCP Primary Care Physician Unavail able Encounter [facility] [place] Date(s): 07/26/25 - 07/27/[address] [address]- Encounter Diagnosis Muscular pain(Final) - 07/27/25 Viral syndrome(Final) - 07/27/25 Discharge Disposition: A-D/C Home Attending Physician: Sandor Daniel MD Admitting Physician: Sandor Daniel MD Referring Physician: Not on Staff, Referring [...] 3:52:00 AM EST, Route to Pharmacy Electronically, [facility]/pharmacy #[id number], Partial fill upon patient request if [...] Refills, Maintenance, 07/10/25 8:08:00 AM EDT, Tablet, [facility], Partial fill upon patient request if [...] ve Date Andi coma score total 15 Results Radiology Reports * Exam Date Time Procedure Performing Provider Status 07/27/25 5:[address] Abd/Pelvis W/ IV Contrast Only Auth (Verified) Notes: (CT Abd/Pelvis W/ IV Contrast Only) Reason For Exam: LLQ abdominal pain;Other: RESULT: CT Abd/Pelvis W/ IV Contrast Only CT Abd/Pelvis W/ IV Contrast Only Hx of Present Illness: pt complains of back pain, dizziness, feeling wobbly when she stands up, also complains of a fever, arrived in wheelchair, sts symptoms have been going on for the last 24hrs, denies NV at this time; Reason: Other:; LLQ abdominal pain; Clinical Question(s): Diverticulitis; Order Comment: - TECHNIQUE: Spiral CT through the abdomen and pelvis with IV contrast formatted in 3 planes. 100 cc of Isovue 300 100cc vials was administered intravenously. This study was performed without oral contrast. Weight-based protocol using automatic tube modulation was used to optimize exposure parameters. CTDIvol Body: 8.60 mGy, DLP Body: 434 mGy*cm. COMPARISON: MRI lumbar spine 10/29/2019 FINDINGS: Clamp Forklift Operator View Findings, Lines and Tubes: None. Visualized Chest: Lung bases are clear. No pleural effusion. The heart is normal in size. No pericardial effusion. Diaphragm: Normal. Liver: Normal morphology and attenuation. No suspicious lesion. Gallbladder: No CT evidence of gallbladder pathology. Bile ducts: No biliary ductal dilation. Spleen: Normal. Accessory splenic tissue is incidentally noted. Pancreas: Subcentimeter hypodensity in the pancreatic head, too small to characterize (601:44). Adrenal glands: Normal. Kidneys and ureters: No hydronephrosis, stones, or suspicious masses. Bladder: Normal. Reproductive organs: Partially calcified 2.6 x 2.7 cm posterior fundal fibroid (601:116) Stomach, small bowel, and large bowel: No evidence of bowel obstruction or focal inflammation. Milddiverticulosis of the colon without evidence of acute diverticulitis. Appendix: Normal. Peritoneum and retroperitoneum: No ascites or pneumoperitoneum. No omental or mesenteric lesions. Lymph nodes: No enlarged lymph nodes. Blood vessels: Minimal vascular calcifications but no aneurysm. No evidence of venous thrombosis. Abdominal and pelvic wall: Unremarkable. Bones: No acute abnormality. Degenerative and postsurgical changes at L4-L5. IMPRESSION: No acute abnormality. I have personally reviewed the images and I agree with this report. WSN: [id number] Ordering Physician: Kirit Lindsay Dictated By: Nancy Wesley DO Dictated Date/Time: 07/27/25 7:25 am Reviewed By: Jose Barry MD Signed By: Jose Barry MD Signed Date/Time: 07/27/25 7:30 am Transcribed By: LOUIS Transcribed Date/Time: 07/27/25 6:17 am * Exam Date Time Procedure Performing Provider Status 07/26/25 7:21 PM Chest 2 Views Frontal and Lat Auth (Verified) Notes: (Chest 2 Views Frontal and Lat) Reason For Exam: Chest Pain;Other: RESULT: Chest 2 Views Frontal and Lat Chest 2 Views Frontal and Lat Hx of Present Illness: pt complains of back pain, dizziness, feeling wobbly when she stands up, also complains of a fever, arrived in wheelchair, sts symptoms have been going on for the last 24hrs, denies NV at this time; Reason: Other:; Chest Pain; Clinical Question(s): Other: COMPARISON: None. FINDINGS: LINES AND TUBES: None. LUNGS AND PLEURA: Clear lungs. Normal pulmonary vascularity. No evidence of pleural effusion. No pneumothorax. HEART, MEDIASTINUM AND MARTY: Heart is normal in size. Normal mediastinal and hilar contour. BONES AND SOFT TISSUES: Patient is scoliotic. Degenerative changes are present. IMPRESSION: No acute abnormality. WSN: [id number] Ordering Physician: Josefina Fuentes Dictated By: James Vicente MD Dictated Date/Time: 07/26/25 7:25 pm Reviewed By: James Vicente MD Signed By: James Vicente MD Signed Date/Time: 07/26/25 7:25 pm Transcribed By: LOUIS Transcribed Date/Time: 07/26/25 7:23 pm Vital Signs Most recent to oldest [Reference Range]: 1 2 3 Height 153 cm (07/27/25 6:25 AM) 153 cm (07/27/25 1:50 AM) 153 cm (07/26/25 6:36 PM) Weight 65 kg (07/27/25 8:43 AM) 65 kg (07/27/25 6:25 AM) 65 kg (07/27/25 1:50 AM) Oxygen Saturation [94-100 %] 100 % (07/27/25 10:30 AM) 98 % (07/27/25 8:43 AM) 98 % (07/27/25 6:25 AM) Pulse Rate [55-90 bpm] 83 bpm (07/27/25 10:30 AM) 76 bpm (07/27/25 8:43 AM) 79 bpm (07/27/25 6:25 AM) Body Mass Index [18.5-24.99 kg/m2] 27.77 kg/m2 *H* (07/27/25:25 AM) 27.77 kg/m2 *H* (07/26/25 6:36 PM) Blood Pressure [90-138/55-84 mm Hg] 114/69mm Hg (07/27/25 10:30 AM) 108/62mm Hg (07/27/25 8:43 AM) 116/70mm Hg (07/27/25 6:25 AM) Respiratory Rate [16-30 br/min] 15 br/min *L* (07/27/25 10:30 AM) 18 br/min (07/27/25 8:43 AM) 13 br/min *L* (07/27/25 6:25 AM) Temperature [96.8-100.4 DegF] 97.8 DegF (07/27/25 8:43 AM) 97.7 DegF (07/27/25:25 AM) 97.9 DegF (07/27/25 4:13 AM) Mode of Delivery (Oxygen) Room air (07/27/25 10:30 AM) Room air (07/27/25 8:43 AM) Room air (07/27/25 4:13 AM) Blood pressure sites Arm, right (07/27/25 10:30 AM) Arm, right (07/27/25 8:43 AM) Arm, right (07/27/25 6:25 AM) Temperature Route Oral (07/27/25 8:43 AM) Oral (07/27/25 6:25 AM) Oral (07/27/25 4:13 AM) Dry Weight 65 kg (07/27/25 8:43 AM) Weight Obtained Via Patient/family state d (07/26/25 6:36 PM) Social History Social History Type Response Smoking Status Former smoker, quit more than 30 days ago entered on: 07/03/25 Sex Sex Representation Female (finding) Status Not EKG study * Event Display: ECG 12-Lead Authored Date: [id number] Please click on pdf link to open report * Event Display: ECG 12-Lead Authored Date: Ventricular Rate: 95 BPM Atrial Rate: 95 BPM P-R Interval: 188 ms QRS Duration: 68 ms Q-T Interval: 342 ms QTC Calculation(Bazett): 429 ms P Bryant: 54 degrees R Bryant: 27 degrees T Bryant: 57 degrees Normal sinus rhythm Normal ECG When compared with ECG of 18-Jul-2025 21:10, No significant change was found Confirmed by AHSAN DIA MD ([id number]) on 07/27/2025 8:39:07 AM Teller: AHSAN DIA MD Note * Odessa Hamilton MD: PERFORM Event Display: Patient Education Leaflets Authored Date: [id number] Myalgias ?? [id number] Myalgias Myalgias are another word for??muscle aches and soreness.??This is a symptom, not a disease.??Myalgias can have many causes.??A cold, the flu,??fever, or any infection can cause them.??They may happen after heavy exercise or injury, such as an accident or fall.??Some medicines, such as statins, some antidepressants, and cancer treatments can cause myalgias.??They can also be a symptom of long-term (chronic) health problems, such as cancer, lupus,??chronic fatigue, rheumatoid arthritis, or hypothyroidism. With these illnesses, other serious symptoms often occur with muscle pain and soreness. Myalgias most often go away on their own. If they don't go away, or if they come back or are severe, you may need tests to help find the cause. Injuries or problems with the bones, joints, muscles, tendons, and ligaments can cause myalgias. Myalgias can also result from a problem with circulation, an infection, or a tumor. Home care ??? Rest until you feel better. ??? Follow instructions that you were given for how to care for yourself. This may depend on the cause of your myalgias. ??? If myalgia is thought to be caused by a medicine, talk with the doctor who prescribed the medicine about what to do. ??? To control pain, take prescription or [id number] medicines as directed. Talk to your doctor first if you have any problems with your kidney or liver. Do not take [id number] NSAIDS like ibuprofen if you've had stomach ulcers or bleeding or if you take blood thinners. ?? Follow-up care Follow up with your doctor or as advised. If your symptoms don't go away in a few days or if they come back, follow up with your doctor for an exam and testing. ?? When to get medical advice Contact your doctor right away if you have: ??? A fever of??100.4??F (38??C)??or higher, or as advised by your doctor. ??? Pain that gets worse or that goes away and comes back. ??? New joint pain. ??? A new rash. ??? A severe headache, neck pain, drowsiness, or confusion. ?? Last Reviewed Date: 2024 00:00:00 ?? [id number] [employer]. All rights reserved. This information is not intended as a substitute for professional medical care. Always follow your healthcare professional's instructions. ?? Patient Care team information Care Team Personnel Name: Not on Staff, PCP Position: S Physician (General Medicine) Member Role: PCP Care Team Related Persons Name: LORI BHATT Insurance Providers Guarantor name: Health Plan Information #: 1 Payer: MEDICARE B Payer Identifier: Member Number: [id number] Group Number: Subscriber Identifier: [id number] Relationship to Subscriber: self Coverage Type: NA Coverage Verification Date: Telecom: Address: [facility] Information #: 2 Payer: [email or web address] Payer Identifier: CARLITA Member Number: [id number] Group Number: Subscriber Identifier: [id number] Relationship to Subscriber: self Coverage Type: MEDICAID Coverage Verification Date: Telecom: Address:
--- OUTSIDE RECORDS SUMMARY | 2025-07-28 07:01 | XMS_ITS | Continuity of Care Document ---
Author Organization [facility] ter Address [address] [place] [address]- Care Team Providers Care Eyeglass Maker Name Role Phone Not on Staff, PCP Primary Care Physician Unavail able [place] [facility] [place] - 07/28/[address] [address]- Discharge Disposition: A-D/C Walkout Attending Physician: Not [...] 3:52:00 AM EST, Route to Pharmacy Electronically, [facility]/pharmacy #[id number], Partial fill upon patient request [...] Refills, Maintenance, 07/10/25 8:08:00 AM EDT, Tablet, [facility] 3, Partial fill upon patient request [...] Total Allowed Fills: 1 Fills Dispensed: 0 Results Radiology Reports * Exam Date Time Procedure Performing Provider Status 07/27/25 7:53 PM Chest 2 Views Frontal and Lat Auth (Verified) Notes: (Chest 2 Views Frontal and Lat) Reason For Exam: Chest Pain;Other: RESULT: Chest 2 Views Frontal and Lat Chest 2 Views Frontal and Lat Hx of Present Illness: Patient coming in with dizziness and b l leg pain. complaining that her heart is racing. was given valium today and is worried thats the cause.; Reason: Other:; Chest Pain; Clinical Question(s): Other: COMPARISON: 07/26/2025 FINDINGS: LINES AND TUBES: None. LUNGS AND PLEURA: Clear lungs. Normal pulmonary vascularity. No evidence of pleural effusion. No pneumothorax. HEART, MEDIASTINUM AND MARTY: Heart is normal in size. Normal mediastinal and hilar contour. BONES AND SOFT TISSUES: No acute abnormality. IMPRESSION: No acute abnormality. WSN: [id number] Ordering Physician: Marjorie Vidal Dictated By: Dipak Alvarez MD Dictated Date/Time: 07/27/25 8:00 pm Reviewed By: Dipak Alvarez MD Signed By: Dipak Alvarez MD Signed Date/Time: 07/27/25 8:00 pm Transcribed By: LOUIS Transcribed Date/Time: 07/27/25 8:00 pm Vital Signs Most recent to oldest [Reference Range]: 1 2 3 Height 153 cm (07/27/25 7:45 PM) Weight 65.7 kg (07/27/25 7:45 PM) Oxygen Saturation [94-100 %] 99 % (07/28/25 5:20 AM) 95 % (07/28/25 1:59 AM) 94 % (07/27/25 10:30 PM) Pulse Rate [55-90 bpm] 86 bpm (07/28/25 5:20 AM) 82 bpm (07/28/25 1:59 AM) 88 bpm (07/27/25 10:30 PM) Body Mass Index [18.5-24.99 kg/m2] 28.07 kg/m2 *H* (07/27/25 7:45 PM) Blood Pressure [90-138/55-84 mm Hg] 131/92mm Hg (07/28/25 5:20 AM) 141/83mm Hg *H* (07/28/25 1:59 AM) 139/85mm Hg *H* (07/27/25 10:30 PM) Respiratory Rate [16-30 br/min] 17 br/min (07/28/25 5:20 AM) 16 br/min (07/28/25 1:59 AM) 16 br/min (07/27/25 10:30 PM) Temperature [96.8-100.4 DegF] 97.9 DegF (07/28/25 5:20 AM) 97.9 DegF (07/28/25 1:59 AM) 97.9 DegF (07/27/25 10:30 PM) Mode of Delivery (Oxygen) Room air (07/28/25 5:20 AM) Room air (07/28/25 1:59 AM) Room air (07/27/25 10:30 PM) Blood pressure sites Arm, left (07/28/25 5:20 AM) Arm, left (07/28/25 1:59 AM) Arm, right (07/27/25 10:30 PM) Temperature Route Oral (07/28/25 5:20 AM) Oral (07/28/25 1:59 AM) Oral (07/27/25 10:30 PM) Dry Weight 65.7 kg (07/27/25 7:45 PM) Weight Obtained Via Patient/family state d (07/27/25 7:45 PM) Dry Weight Obtained Via Patient/family s tated (07/27/25 7:45 PM) Social History Social History Type Response Smoking Status Former smoker, quit more than 30 days ago entered on: 07/03/25 Sex Sex Representation Female (finding) Status Not EKG study * Event Display: ECG 12-Lead Authored Date: Please click on pdf link to open report * Event Display: ECG 12-Lead Authored Date: Ventricular Rate: 94 BPM Atrial Rate: 94 BPM P-R Interval: 170 ms QRS Duration: 72 ms Q-T Interval: 356 ms QTC Calculation(Bazett): 445 ms P Bristow: 66 degrees R Bristow: 28 degrees T Bristow: 66 degrees Normal sinus rhythm Normal ECG When compared with ECG of 26-Jul-2025 19:52, No significant change was found Confirmed by MYNOR LOPEZ ([id number]) on 07/28/2025 8:08:42 AM [place]: MYNOR LOPEZ Patient Care team information Care Team Personnel Name: Not on Staff, PCP Position: S Physician (General Medicine) Member Role: PCP Care Team Related Persons Name: RYAN BHATTALD Insurance Providers Guarantor name: CARLITA Health Plan Information #: 1 Payer: MEDICARE B Payer Identifier: Member Number: [id number] Group Number: Subscriber Identifier: [id number] Relationship to Subscriber: self Coverage Type: NA Coverage Verification Date: Telecom: Address: [facility] Information #: 2 Payer: [employer]ER [employer] Payer Identifier: Member Number: [id number] Group Number: Subscriber Identifier: [id number] Relationship to Subscriber: self Coverage Type: MEDICAID Coverage Verification Date: Telecom: Address:
--- NOTE | ~2025-07-29 | CT_ITS ---
CLINICAL HISTORY: LLQ Tenderness; Leukocytosis CT abdomen and pelvis with contrast Comparison: None provided Findings: LIMITED CHEST: Lung bases are clear. LIVER: No focal liver lesion. BILIARY: No gallbladder wall thickening, radiopaque stone, or ductal dilatation. PANCREAS: No mass or ductal dilatation. SPLEEN: No splenomegaly. KIDNEYS: No hydronephrosis or radiopaque stone. Left renal cyst. ADRENALS: No nodule. VASCULAR: No aneurysm. RETROPERITONEUM: No lymphadenopathy or mass. BOWEL/MESENTERY: The gastric fundus appears thickened however this is likely due to transient infolding. No evidence of obstruction. No free fluid or air. Normal appendix. Mild sigmoid wall thickening. ABDOMINAL WALL: No mass or significant abnormality. URINARY BLADDER: No focal wall thickening. PELVIC NODES: No pelvic lymphadenopathy. PELVIC ORGANS: Fibroid uterus. BONES: No acute fracture. OTHER: Negative. IMPRESSION: Mild sigmoid colonic wall thickening, this may be due to underdistention, however may represent infectious or inflammatory colitis in the appropriate clinical setting. Thickened appearance of the gastric fundus, favored to be due to transient infolding. Correlate with clinical symptoms. This document has been electronically signed by: Alberta Vu MD on 07/30/2025 01:24:35
[2025-07-29 18:28] VITALS: BP 118/68; PULSE 100; RESP 18; TEMP 36.6; O2SAT 98; BMI 28.1
--- NOTE | 2025-07-29 18:32 | ED.GENADULT ---
HPI - General Adult General Chief complaint: General Medical Stated complaint: Back Pain Time Seen by Provider: 07/29/25 22:06 Source: patient Mode of arrival: ambulatory Limitations: no limitations History of Present Illness ED Provider: Louie LOWERY HPI narrative: The patient is a 65-year-old female with a history of UTIs, hyperglycemia, and homelessness, presenting to the ED for evaluation of multiple complaints. Patient reports she has been experiencing low back pain, bilateral lower extremity swelling which is gravity dependent, and improves with elevation, as well as elevated blood sugar. The patient reports she was diagnosed a month ago with likely diabetes at [facility], the patient was given metformin which she states she had been taking for some time however has been without it for the past 1-2 weeks as it is at a local homeless halfway storage space which she does not currently have access to. The patient reports she was then seen at [facility] and prescribed insulin, however patient reports she has not been using the insulin as she is currently homeless and does not feel it is safe or clean enough to be injecting her insulin in a homeless halfway bathroom. The patient also reports intermittent nausea, however denies associated fever/chills, vomiting, abdominal pain, chest pain, shortness of breath, cough, hemoptysis, recent sick contacts, or recent falls or other trauma. Related Data Previous Rx's ?Medication ?Instructions ?Recorded alcohol swabs 1 pad topical QIDACHS #100 ea 07/21/25 blood sugar diagnostic (FreeStyle #100 ea 07/21/25 Lite Strips) blood-glucose meter (FreeStyle #1 ea 07/21/25 Lite Meter kit) cefuroxime axetil 500 mg tablet 500 mg PO BID #10 tabs 07/21/25 cyanocobalamin (vitamin B-12) 1,000 mcg PO DAILY 90 days #90 tabs 07/21/25 1,000 mcg tablet (Vitamin B-12) folic acid 1 mg tablet 1 mg PO DAILY 90 days #90 tabs 07/21/25 insulin glargine 100 unit/mL 10 unit (0.1 mL) subcut BEDTIME 90 07/21/25 subcutaneous solution (Lantus days #9 mL U-100 Insulin) insulin lispro 100 unit/mL 0 sliding scale dose subcut 07/21/25 subcutaneous pen (Humalog KwikPen QIDACHS #15 mL (U-100) Insulin) lancets 28 gauge (FreeStyle #100 ea 07/21/25 Lancets) metformin 500 mg tablet 1,000 mg (2 x 500 mg) PO BID 90 07/21/25 days #360 tabs pen needle, diabetic 32 gauge x #100 ea 07/21/25 1/ pregabalin 50 mg capsule 50 mg PO TID 90 days #270 caps 07/21/25 ciprofloxacin HCl 500 mg tablet 500 mg PO BID #10 tabs 07/30/25 Allergies Allergy/AdvReac Type Severity Reaction Status Date / Time No Known Allergies Allergy Verified 07/29/25 18:31 Review of Systems Review of Systems: Yes all other systems are reviewed and are negative [facility] Social History Social History Household Members: None Housing: Homeless Do you presently have visiting nurse or other home services: No Patient Tobacco Use Status: Former Tobacco user Smoked in Last 30 Days: No Use of substances other than those prescribed or required for medical reasons: No Advance Directives: No Advance Directives Information Provided: No Do you have a plan to hurt others: No Plan service: No Physical Exam ED Exam Exam: CONSTITUTIONAL: The patient appears non-toxic, well nourished and in no acute distress. Vital signs as documented. HEAD: Atraumatic, normocephalic. EYES: EOMs grossly intact, pupils equal, conjunctiva clear, no exudate. ENT: Nares patent, no discharge. Airway patent, no audible stridor, visible mucosa is pink and moist without noted lesions. NECK: Trachea is midline, no obvious masses or gross abnormalities. CHEST: Symmetric movement, normal appearance. LUNGS: LS present and CTAB, no w/r/r. Non-labored work of breathing. CARDIAC: Regular Rhythm, S1/S2 appreciated, no murmurs, rubs or gallops. ABDOMEN: Abdomen soft and non-tender x4 quadrants, no palpable masses or organomegaly. : Deferred. EXTREMITIES: Normal tone, moves all extremities spontaneously without reported pain. No obvious acute injury or deformity noted. There is 1+ nonpitting bilateral edema noted in the ankles. NEURO: Alert and oriented x3, CN II-XII appear grossly intact. Cerebellar Functioning grossly intact. No obvious sensory or motor deficits. Speech clear and appropriate. PSYCH: normal affect, appropriate eye contact, fluid speech, with appropriate response to questioning. No reported suicidality or homicidality. SKIN: Warm, dry, color appropriate, normal turgor. No rashes noted. Vital Signs: Vital Signs - 24 hr 07/29/25 18:28 07/29/25 22:07 07/30/25 02:04 Temperature 98 F 97.8 F 97.8 F Pulse Rate 100 92 75 Respiratory Rate 18 16 17 Blood Pressure 118/68 128/76 140/78 H Pulse Oximetry 98 97 96 Oxygen Delivery Method Room Air Room Air Room Air 07/30/25 04:26 Temperature 97.6 F Pulse Rate 84 Respiratory Rate 16 Blood Pressure 136/78 Pulse Oximetry 96 Oxygen Delivery Method Room Air BMI result Body Mass Index 28.1 CONSTITUTIONAL: The patient appears non-toxic, well nourished and in no acute distress. Vital signs as documented. HEAD: Atraumatic, normocephalic. EYES: EOMs grossly intact, pupils equal, conjunctiva clear, no exudate. ENT: Nares patent, no discharge. Airway patent, no audible stridor, visible mucosa is pink and moist without noted lesions. NECK: Trachea is midline, no obvious masses or gross abnormalities. CHEST: Symmetric movement, normal appearance. LUNGS: LS present and CTAB, no w/r/r. Non-labored work of breathing. CARDIAC: Regular Rhythm, S1/S2 appreciated, no murmurs, rubs or gallops. ABDOMEN: Abdomen soft x4 quadrants, positive tenderness to palpation of the left lower quadrant, negative rebound, negative guarding, no palpable masses or organomegaly. : Deferred. EXTREMITIES: Normal tone, moves all extremities spontaneously without reported pain. No obvious acute injury or deformity noted. NEURO: Alert and oriented x3, CN II-XII appear grossly intact. Cerebellar Functioning grossly intact. No obvious sensory or motor deficits. Speech clear and appropriate. PSYCH: normal affect, appropriate eye contact, fluid speech, with appropriate response to questioning. No reported suicidality or homicidality. SKIN: Warm, dry, color appropriate, normal turgor. No rashes noted. Course Course Course Narrative: This is an RME: Additional HPI, ROS, PE not included below will be deferred to primary provider. RME assessment and note performed by: Tori Velez PA-C This is a [id number]-female, with a hx of diabetes, who presents to the ER with complaints of back pain, BL lower leg swelling, palpitations, and feeling as though her blood glucose is high. Plan: Labs, EKG, further ER eval needed Medications Administered Discontinued Medications Generic Name Dose Route Start Last Admin Trade Name Kanchan PRN Reason Stop Dose Admin Acetaminophen 650 mg 07/30/25 04:27 07/30/25 04:31 Acetaminophen 325 Mg Tablet PO 07/30/25 04:28 650 mg ONCE ONE Administration Iohexol 85 ml 07/30/25 00:29 07/30/25 00:31 Iohexol 350 Mg/Ml 100 Ml Infus..Btl IV 07/30/25 00:30 85 ml ONCE ONE Administration Medical Decision Making Medical Decision Making MDM Narrative: 11:39 PM 07/29/2025 (Monica LOWERY): The patient is a 65-year-old female with a history of UTIs, hyperglycemia, and homelessness, presenting to the ED for evaluation of multiple complaints. Patient reports she has been experiencing low back pain, bilateral lower extremity swelling which is gravity dependent, and improves with elevation, as well as elevated blood sugar. The patient reports she was diagnosed a month ago with likely diabetes at [facility], the patient was given metformin which she states she had been taking for some time however has been without it for the past 1-2 weeks as it is at a local homeless halfway storage space which she does not currently have access to. The patient reports she was then seen at [facility] and prescribed insulin, however patient reports she has not been using the insulin as she is currently homeless and does not feel it is safe or clean enough to be injecting her insulin in a homeless halfway bathroom. The patient also reports intermittent nausea, however denies associated fever/chills, vomiting, abdominal pain, chest pain, shortness of breath, cough, hemoptysis, recent sick contacts, or recent falls or other trauma. The patient's exam is largely benign, there is 1+ nonpitting edema noted bilaterally, no calf tenderness, warmth, or erythema, patient reports left lower quadrant abdominal tenderness, negative rebound. The patient's laboratory evaluation shows leukocytosis of 16.7, no anemia, electrolyte abnormality, or BRAYDEN. LFTs are unremarkable. Troponin is negative. BNP is normal. The patient's urinalysis shows glucose but no evidence of infection. The patient's viral swabs are negative for influenza, RSV, and COVID. The patient's glucose is elevated at 379, however there was no anion gap and carbon dioxide is normal at 26. The patient has no active vomiting or abdominal pain. The patient's presentation is not concerning for DKA. Given the patient's left lower quadrant abdominal tenderness with leukocytosis we will obtain a CT abdomen and pelvis to rule out acute intra-abdominal infectious pathology. 5:56 AM 07/30/2025 (Monica LOWERY): The patient is CT abdomen and pelvis has resulted and shows mild sigmoid colonic wall thickening which may be due to underdistention versus infectious or inflammatory colitis. The patient is not experiencing any diarrhea, however given the CT finding in the setting of leukocytosis and elevated blood sugar, we will treat prophylactically for suspected infectious colitis. Patient will be treated with 5 days of ciprofloxacin. Admission/Observation Consideration of admission/observation: Escalation of care including admission/observation considered Lab Data MDM Lab Attestation statement: I reviewed the patient's lab results. 07/29/25 19:18 07/29/25 19:18 Labs: Lab Results 07/29/25 07/29/25 07/29/25 Range/Units 19:16 19:18 22:16 WBC 16.7 H (4.8-10.8) X10*3/uL RBC 4.98 (4.20-5.50) X10*6/uL Hgb 14.4 (12.0-16.0) g/dl Hct 41.4 (37.0-47.0) % MCV 83.1 (80.0-98.0) fL MCH 28.9 (27.0-33.0) pg MCHC 34.8 (31.0-35.0) g/dl RDW 12.8 (11.0-16.0) % Plt Count 357 D (160-400) X10*3/uL MPV 11.1 (9.4-12.3) fL Immature Gran % (Auto) 0.3 (0.0-0.4) % Neut % (Auto) 68.2 (45-73) % Lymph % (Auto) 27.0 (20-40) % [place] % (Auto) 3.9 (2-11) % Eos % (Auto) 0.2 (0-4) % Baso % (Auto) 0.4 (0-2) % Lymph # (Auto) 4.5 (1.2-4.9) X10*3/uL [place] # (Auto) 0.7 (0.1-1.2) X10*3/uL Eos # (Auto) 0.0 (0.0-0.4) X10*3/uL Baso # (Auto) 0.1 (0.0-0.2) X10*3/uL Abs Immat Gran (auto) 0.05 H (0.00-0.03) X10*3/uL Absolute Neuts (auto) 11.4 H (2.0-8.3) x10*3/uL Absolute Nucleated RBC 0.000 (0.0-0.012) X10*3/uL Nucleated RBC % (auto) 0.0 (0.0-0.2) /100WBC Sodium 137 (135-145) mmol/L Potassium 4.0 (3.3-5.1) mmol/L Chloride 98 (96-108) mmol/L Carbon Dioxide 26 (22-29) mmol/L Anion Gap 17 (12-20) BUN 10 (9-16) mg/dL Creatinine 0.62 (0.5-1.4) mg/dL Estim Creat Clear Calc 76.2 Estimated GFR > 60 POC Glucose (60-115) mg/dL Random Glucose 379 H* (60-115) mg/dL Calcium 10.0 D (8.4-10.2) mg/dL Total Bilirubin 0.3 (0.0-1.0) mg/dL Direct Bilirubin 0.1 (0.0-0.5) mg/dL AST 18 (5-31) U/L ALT 30 (0-31) U/L Alkaline Phosphatase 89 (39-117) U/L Troponin I High Sens < 2.7 (<3.5-17.0) ng/L NT-Pro-B Natriuret Pep 33.1 (<300) pg/mL Total Protein 7.6 (6.5-8.0) g/dL Albumin 4.7 (3.5-5.0) g/dL Urine Color Yellow Urine Appearance Clear Urine pH 5.5 (5.0-9.0) Ur Specific [place] >= 1.030 H (1.005-1.025) Urine Protein Negative (Neg-Trace) mg/dL Urine Glucose (UA) >=1000 H (Negative) mg/dL Urine Ketones Trace (Negative) mg/dL Urine Blood Negative (Negative) Urine Nitrite Negative (Negative) Ur Leukocyte Esterase Negative (Negative) Urine RBC 0-2 (0-2) /HPF Urine WBC 0-5 (0-5) /HPF Ur Squamous Epith Cells 3-5 (0-2) /HPF Urine Bacteria None Seen (None Seen) Hyaline Casts 0-2 (0-2) /LPF Influenza Type A (PCR) NEGATIVE (Negative) Influenza Type B (PCR) NEGATIVE (Negative) RSV RNA Qual (PCR) NEGATIVE (Negative) SARS-CoV-2 RNA (RT-PCR) NEGATIVE (Negative) 07/29/25 Range/Units 22:33 WBC (4.8-10.8) X10*3/uL RBC (4.20-5.50) X10*6/uL Hgb (12.0-16.0) g/dl Hct (37.0-47.0) % MCV (80.0-98.0) fL MCH (27.0-33.0) pg MCHC (31.0-35.0) g/dl RDW (11.0-16.0) % Plt Count (160-400) X10*3/uL MPV (9.4-12.3) fL Immature Gran % (Auto) (0.0-0.4) % Neut % (Auto) (45-73) % Lymph % (Auto) (20-40) % [place] % (Auto) (2-11) % Eos % (Auto) (0-4) % Baso % (Auto) (0-2) % Lymph # (Auto) (1.2-4.9) X10*3/uL [place] # (Auto) (0.1-1.2) X10*3/uL Eos # (Auto) (0.0-0.4) X10*3/uL Baso # (Auto) (0.0-0.2) X10*3/uL Abs Immat Gran (auto) (0.00-0.03) X10*3/uL Absolute Neuts (auto) (2.0-8.3) x10*3/uL Absolute Nucleated RBC (0.0-0.012) X10*3/uL Nucleated RBC % (auto) (0.0-0.2) /100WBC Sodium (135-145) mmol/L Potassium (3.3-5.1) mmol/L Chloride (96-108) mmol/L Carbon Dioxide (22-29) mmol/L Anion Gap (12-20) BUN (9-16) mg/dL Creatinine (0.5-1.4) mg/dL Estim Creat Clear Calc Estimated GFR POC Glucose 343 H (60-115) mg/dL Random Glucose (60-115) mg/dL Calcium (8.4-10.2) mg/dL Total Bilirubin (0.0-1.0) mg/dL Direct Bilirubin (0.0-0.5) mg/dL AST (5-31) U/L ALT (0-31) U/L Alkaline Phosphatase (39-117) U/L Troponin I High Sens (<3.5-17.0) ng/L NT-Pro-B Natriuret Pep (<300) pg/mL Total Protein (6.5-8.0) g/dL Albumin (3.5-5.0) g/dL Urine Color Urine Appearance Urine pH (5.0-9.0) Ur Specific [place] (1.005-1.025) Urine Protein (Neg-Trace) mg/dL Urine Glucose (UA) (Negative) mg/dL Urine Ketones (Negative) mg/dL Urine Blood (Negative) Urine Nitrite (Negative) Ur Leukocyte Esterase (Negative) Urine RBC (0-2) /HPF Urine WBC (0-5) /HPF Ur Squamous Epith Cells (0-2) /HPF Urine Bacteria (None Seen) Hyaline Casts (0-2) /LPF Influenza Type A (PCR) (Negative) Influenza Type B (PCR) (Negative) RSV RNA Qual (PCR) (Negative) SARS-CoV-2 RNA (RT-PCR) (Negative) Independent Interpretation I performed an independent interpretation of an: EKG (EKG shows sinus rhythm with a rate of 100, there is significant baseline artifact, however no evidence of acute ischemia, no ST elevation, no ectopy. QTC 425. Compared to previous on 07/19/2025 there are no significant morphology changes.) Radiology Impression Discussion of test interpretation with radiology: I have reviewed the radiologist's reading. External Record Review External record reviewed: Outpatient record and Prior outpatient labs Chronic Conditions Patient?s care impacted by: Diabetes Discharge Plan Discharge Clinical Impression: Colitis, Dependent edema Patient Disposition: Home, Self-Care Instructions: Colitis (ED), Leg Edema (ED) Additional Instructions: Thank you for choosing [facility]'s Emergency Department for your care today. Thankfully your evaluation in the ED today shows no evidence of an emergent process requiring surgical intervention, admission to the hospital or continued ED observation, and it is safe to discharge you. Your exam and CT imaging is concerning for possible colitis, seeing as your laboratory evaluation shows an elevated white blood cell count and elevated blood sugar, it is possible this is being caused by a bacterial infection. As such we are treating you with an antibiotic as a precaution. Please take ciprofloxacin as prescribed until it is finished. You should take alternating (staggered) doses of ibuprofen 600mg and Tylenol 1000mg every 4 hours as needed for any additional pain. Please stay well hydrated and get plenty of rest. Please continue taking your metformin and insulin as directed. There was no evidence of heart failure causing your lower extremity swelling. The swelling in your legs is likely dependent pull of fluid by gravity. Please elevate your legs above the level of your heart whenever possible to reduce your swelling. Please follow up with your primary care physician for re-evaluation, additional management of your symptoms, and continued preventative care. If you do not have a primary care physician, please call the [facility] at [phone] to establish a new primary care physician. While waiting to establish your new primary care physician, you can call our Walk[facility]in [facility] at [phone] for non-emergency needs. Please return to the emergency department if you develop a severe or sudden change in your symptoms, a fever over 100.4 that does not improve with Tylenol or Ibuprofen, recurrent vomiting, or any other new or worsening symptoms or concerns. Prescriptions: New ciprofloxacin HCl 500 mg tablet 500 mg PO BID Qty: 10 0RF No Action insulin glargine [Lantus U-100 Insulin] 100 unit/mL Solution 10 unit subcut BEDTIME 90 Days Qty: 9 0RF cyanocobalamin (vitamin B-12) [Vitamin B-12] 1,000 mcg Tablet 1,000 mcg PO DAILY 90 Days Qty: 90 0RF folic acid 1 mg Tablet 1 mg PO DAILY 90 Days Qty: 90 0RF pregabalin 50 mg Capsule 50 mg PO TID 90 Days Qty: 270 0RF (DME) FreeStyle Lite Strips Strip Qty: 100 0RF Rx Instructions: Test four times a day or as directed. (DME) blood-glucose meter [FreeStyle Lite Meter] Kit Qty: 1 0RF Rx Instructions: As Directed alcohol swabs Pads, Medicated 1 pad TOPICAL QIDACHS Qty: 100 0RF Rx Instructions: Use four times a day or as directed. cefuroxime axetil 500 mg tablet 500 mg PO BID Qty: 10 0RF insulin lispro [Humalog KwikPen Insulin] 100 unit/mL insulin pen 0 sliding scale dose SUBCUT QIDACHS Qty: 15 0RF Rx Instructions: Blood Sugar: <150 - 0 units 151-200 - 2 units 201-250 - 4 units 251-300 - 6 units 301-350 - 8 units >350 - 10 units (DME) pen needle, diabetic 32 gauge x 1/4 needle Qty: 100 0RF Rx Instructions: Use four times a day or as directed. (DME) lancets [FreeStyle Lancets] 28 gauge misc Qty: 100 0RF Rx Instructions: Test four times a day or as directed. metformin 500 mg tablet 1,000 mg PO BID 90 Days Qty: 360 0RF Print Language: Estonian
--- NOTE | 2025-07-29 18:33 | ECG_ITS ---
Test Reason : PALPITTIONS Blood Pressure : */* mmHG Vent. Rate : 100 BPM Atrial Rate : 100 BPM P-R Int : 186 ms QRS Dur : 54 ms QT Int : 330 ms P-R-T Axes : 37 12 33 degrees QTcB Int : 425 ms Normal sinus rhythm Septal infarct , age undetermined Abnormal ECG When compared with ECG of 19-Jul-2025 16:56, No significant changes seen Referred By: Tori Velez Electronically Signed By: ANDERSON MC
[2025-07-29 19:23] LABS: MANUAL DIFF FLAG NO
[2025-07-29 19:24] LABS: Hematocrit 41.4 % (37.0-47.0); Hemoglobin 14.4 g/dl (12.0-16.0); Imm Gran Abs Auto 0.05 X10*3/uL (0.00-0.03); Imm Gran Pct Auto 0.3 % (0.0-0.4); Lymphocytes Absolute Auto 4.5 X10*3/uL (1.2-4.9); Mean Corpuscular HGB Conc 34.8 g/dl (31.0-35.0); Mean Corpuscular Hemoglobin 28.9 pg (27.0-33.0); Mean Corpuscular Volume 83.1 fL (80.0-98.0); NRBC Abs Auto 0.000 X10*3/uL (0.0-0.012); NRBC Pct Auto 0.0 /100WBC (0.0-0.2); Platelet Count 357 X10*3/uL (160-400); Red Blood Count 4.98 X10*6/uL (4.20-5.50); White Blood Count 16.7 X10*3/uL (4.8-10.8)
[2025-07-29 19:53] LABS: Alanine Aminotransferase 30 U/L (0-31); Albumin Level 4.7 g/dL (3.5-5.0); Alkaline Phosphatase 89 U/L (39-117); Anion Gap 17 (12-20); Aspartate Amino Transferase 18 U/L (5-31); Blood Urea Nitrogen 10 mg/dL (9-16); Calcium 10.0 mg/dL (8.4-10.2); Carbon Dioxide 26 mmol/L (22-29); Chloride 98 mmol/L (96-108); Creatinine Clr Calc Pharmacy 76.2; Estimated Glomerular Filt Rate > 60; Potassium 4.0 mmol/L (3.3-5.1); Sodium 137 mmol/L (135-145); Total Protein 7.6 g/dL (6.5-8.0)
[2025-07-29 20:06] LABS: Resp Syncy Virus RNA Qual PCR NEGATIVE (Negative); SARS COV2 PCR INHOUSE NEGATIVE (Negative)
[2025-07-29 20:10] LABS: NT Pro B Type Natriuretic Pept 33.1 pg/mL (<300); Troponin-I High Sensitivity < 2.7 ng/L (<3.5-17.0)
[2025-07-29 22:07] VITALS: BP 128/76; PULSE 92; RESP 16; TEMP 36.6; O2SAT 97
[2025-07-29 22:21] LABS: Appearance Urine Clear; Glucose Urine UA >=1000 mg/dL (Negative); PH 5.5 (5.0-9.0); Specific Gravity - Urine >= 1.030 (1.005-1.025); UMIC TRIGGER UACC YES
[2025-07-29 22:44] LABS: Glucose, Whole Blood 343 mg/dL (60-115)
[2025-07-30] MEDS: iohexoL 350 MG/ML 100 ML INFUS..BTL 85 ML IV (00:31)
[2025-07-30 02:04] VITALS: BP 140/78; PULSE 75; RESP 17; TEMP 36.6; O2SAT 96
[2025-07-30 04:26] VITALS: BP 136/78; PULSE 84; RESP 16; TEMP 36.4; O2SAT 96
[2025-07-30 06:05] VITALS: BP 123/65; PULSE 75; RESP 15; TEMP 36.7; O2SAT 95
[2025-07-30 06:17] VITALS: BP 123/65; PULSE 75; RESP 15; TEMP 36.7; O2SAT 95
--- OUTSIDE RECORDS SUMMARY | 2025-07-30 14:05 | XMS_ITS | Clinical Summary ---
Author Organization [facility] Address [address] [place] [address] Phone Care Team Providers Care Creel Operator Name Role Phone Physician, No Pcp Primary Care Provider Unavaila ble Allergies No known active allergies Medications metFORMIN (GLUCOPHAGE) 500 mg tablet Take 1 tablet (500 mg total) by mouth 2 (two) times a day with meals. 5 Active insulin glargine (LANTUS) 100 unit/mL injection Inject 10 Units under the skin at bedtime. 10 mL 5 11/01/19 26 Active glucose blood test strip Use as instructed 100 each 5 07/24/20 26 Active blood-glucose meter misc Use to monitor your blood glucose 1 each 5 Active glucose blood (Blood Glucose Test) test strip Use to monitor your blood glucose four time(s) daily as directed. 100 each 5 07/24/20 26 Active pen needle, diabetic 32 gauge x 5/32 needle 4 (four) times a day. Use to inject insulin as directed on each insulin package. 100 each 5 10/22/19 26 Active insulin lispro (HumaLOG KwikPen) 100 unit/mL injection pen Blood Sugar: <150 - 0 Units 151-200 - 2 units 201-250 - 4 units 251 - 300 - 6 units 301 - 350 - 8 Units >350 - 10 Units 15 mL 5 Active doxycycline (ADOXA) 100 mg tablet Take 1 tablet (100 mg total) by mouth 2 (two) times a day for 10 days. Take with a full glass of water and do not lie down for at least 30 minutes after 20 each 10/2907/19/20 25 Active Problems No known active problems Encounters Date Type Department Care Team Description 07/22/2025 3:42 PM EST - 07/24/2025 4:57 PM EST Emergency [facility] Emergency [address] [place] [phone] Michelle Fernández MD Corrado, Adam D, MD Reid, MD Lia Bran, Calixto Wright MD Housing insecurity (Primary Dx); Psychosis, unspecified psychosis type ([facility] V24, [facility] V28); Poorly controlled diabetes mellitus ([facility] V24, [facility] V28); Hyperglycemia; Hypomagnesemia; Elevated blood pressure reading without diagnosis of hypertension Discharge Disposition: Home or Self Care 07/10/2025 9:17 PM EDT - 07/10/2025 10:23 PM EDT [facility] Emergency [address] [place] [phone] Acute nonintractable headache, unspecified headache type (Primary Dx) Discharge Disposition: Home or Self Care 07/08/2025 7:51 PM EDT - 07/09/2025 12:51 AM EDT [facility] Emergency [address] [place] [phone] Type 2 diabetes mellitus with hyperglycemia, without long-term current use of insulin ([facility] V24, [facility] V28) (Primary Dx); Homeless; Cellulitis of right toe Discharge Disposition: Home or Self Care from Last 3 Months Medical History Medical History Date Comments Diabetes mellitus ([facility] [place] [facility] V24, [facility] V28) Social History Tobacco Use Types Packs/Day [...] Sign Reading Time Taken Comments Blood Pressure 103/82 07/24/2025 9:41 AM EST Pulse 100 07/24/2025 9:41 AM EST Temperature 36.5 C (97.7 F) 07/24/2025 4:03 AM EST Respiratory Rate 18 07/24/2025 9:41 AM EST Oxygen Saturation 95% 07/24/2025 9:41 AM EST Inhaled Oxygen Concentration - - Weight 64.9 kg (143 lb) 07/22/2025 1:48 PM EST Height 152.4 cm (5') 07/22/2025 1:48 PM EST Body Mass Index 27.93 07/22/2025 1:48 PM EST Plan of Treatment Health Maintenance Due Date Last Done Comments Breast Cancer Screening 1960 Colorectal Cancer Screening: Colonoscopy 1960 Diabetes: Annual Foot Exam 1970 Diabetes: Annual Retina Eye Exam 1970 DTaP,Tdap,and Td Vaccines (1 - Tdap) 1979 Pneumococcal Vaccine: 50+ Years (1 of 2 - PCV) 1979 Cervical Cancer Screening: P ap Smear 1981 RSV Immunization Adult Patients (1 - Risk 50-74 years 1-dose series) 2010 Zoster Vaccines (1 of 2) 2010 Depression Screening 09/11/2024 COVID-19 Vaccine (1 - 2024-2 6 season) 2025 Influenza Vaccine (#1) 2025 Cholesterol Screening (Lipid Panel) 07/08/2025 Diabetes: Annual Urine Albumin-Creatinine Ratio (uACR) 07/08/2025 Diabetes: Blood Sugar Contro l Test (HGBA1C) 07/08/2025 Falls Risk Assessment 07/08/2025 Hepatitis C Screening 07/08/2025 Medicare Annual Wellness Visit 07/08/2025 Osteoporosis Screening (Bone Density Screening) 07/08/2025 Social Influencers of Health Screening 07/08/2025 Diabetes: Annual GFR (Glomerular Filtration Rate) 07/22/2026 07/22/2025, 07/08/2025 HIB Vaccines Aged Out No longer eligi [...] to complete this topic RSV Immunization Patients Under 20 months Aged Out No longer eligible b ased on patient's age to complete this topic Varicella Vaccines Aged Out No longer eligible based on patient's age to complete this topic Procedures Procedure Name Priority Date/Time Associated Diagnosis Comments POCT GLUCOSE BLOOD Routine 07/24/2025 4: 41 PM EST POCT GLUCOSE BLOOD Routine 07/24/2025 11 :35 AM EST POCT GLUCOSE BLOOD Routine 07/24/2025 8: 11 AM EST POCT GLUCOSE BLOOD Routine 07/23/2025 4: 35 PM EST POCT GLUCOSE BLOOD Routine 07/23/2025 11 :35 AM EST POCT GLUCOSE BLOOD Routine 07/23/2025 8: 02 AM EST POCT GLUCOSE BLOOD Routine 07/22/2025 6: 25 PM EST URINALYSIS WITH REFLEX MICROSCOPIC STAT 07/22/2025 5:44 PM EST URINALYSIS WITH REFLEX MICROSCOPIC STAT 07/22/2025 5:44 PM EST ESCOBEDO URINE CULTURE TUBE Routine 07/22/20 5:39 PM EST EXTRA TUBES Routine 07/22/2025 5:39 PM EST CBC WITH AUTO DIFFERENTIAL STAT 07/22/2025 2:00 PM EST BETA HYDROXYBUTYRATE STAT 07/22/2025 2:00 PM EST OSMOLALITY STAT 07/22/2025 2:00 PM EST MAGNESIUM STAT 07/22/2025 2:00 PM EST LIPASE STAT 07/22/2025 2:00 PM EST COMPREHENSIVE METABOLIC PANEL STAT 07/22/2025 2:00 PM EST CBC AND DIFFERENTIAL STAT 07/22/2025 2:00 PM EST ECG ANNOTATED 07/11/2025 ECG 12-LEAD STAT 07/10/2025 [...] EDT from Last 3 Months Results * (ABNORMAL) POCT Glucose, blood (07/24/2025 4:41 PM EST) Only the most recent of10 resultswithin the time period is included. Pathologist [facility] Glucose POCT 198(H) 70 - 100 mg/dL 07/24/2025 4:42 PM [facility] Blood Capillary blood specimen / Unknown 07/24/2025 4:41 PM EST 07/24/2025 4:43 PM EST Misha Desai MD LAB POINT OF CARE TEST DOCKED DEVICE UNSOLICITED RESULTS Final Result [facility] [address] [place] [address], * (ABNORMAL) Urinalysis with reflex microscopic (07/22/2025 5:44 PM EST) Only the most recent of2 resultswithin the time period is included. [facility] [place] Urine 1.032(H) 1.003 - 1.030 LAB URINALYSIS - AUTOMATED METHOD 07/22/2025 7:07 PM [facility] pH, Urine 7.0 5.0 - 8.0 pH LAB URINALYSIS - AUTOMATED METHOD 07/22/2025 7:07 PM [facility] Leukocytes, Urine Trace(A) Negative LAB URINALYSIS - AUTOMATED METHOD 07/22/2025 7:07 PM [facility] Nitrite, Urine Negative Negative LAB URINALYSIS - AUTOMATED METHOD 07/22/2025 7:07 PM [facility] Protein, Urine Negative <=Trace mg/dL LAB URINALYSIS - AUTOMATED METHOD 07/22/2025 7:07 PM [facility] Glucose, Urine >=1000(A) Negative mg/dL LAB URINALYSIS - AUTOMATED METHOD 07/22/2025 7:07 PM [facility] Ketones, Urine Negative Negative mg/dL LAB URINALYSIS - AUTOMATED METHOD 07/22/2025 7:07 PM [facility] Urobilinogen , Urine 0.2 0.2 - 1.0 mg/dL LAB URINALYSIS - AUTOMATED METHOD 07/22/2025 7:07 PM [facility] Bilirubin, Urine Negative Negative LAB URINALYSIS - AUTOMATED METHOD 07/22/2025 7:07 PM [facility] Blood, Urine Negative Negative LAB URINALYSIS - AUTOMATED METHOD 07/22/2025 7:07 PM [facility] RBC, Urine 4 0 - 4 /HPF 07/22/2025 7:07 PM [facility] WBC, Urine 80(H) 0 - 4 /HPF 07/22/2025 7:07 PM [facility] Squamous Epithelial, Urine >100(H) 0 - 60 /LPF 07/22/2025 7:07 PM [facility] Bacteria, Urine Negative Negative /HPF 07/22/2025 7:07 PM [facility] Hyaline Casts, Urine 3 0 - 3 /LPF 07/22/2025 7:07 PM [facility] Urine Urine specimen obtained by clean catch procedure / Unknown Non-blood Collection / Unknown 07/22/2025 5:44 PM EST 07/22/2025 6:02 PM EST us Michelle Fernández MD LAB URINE ORDERABLES Final Res ult [facility] [address] [place] [address], * Escobedo urine culture tube (07/22/2025 5:39 PM EST) Extra Tube Hold for add-ons. 07/22/2025 8:01 PM [facility] Comment:Auto resulted. Urine Urine specimen obtained by clean catch procedure / Unknown Non-blood Collection / Unknown 07/22/2025 5:39 PM EST 07/22/2025 6:03 PM EST us Michelle Fernández MD LAB URINE ORDERABLES Final Res ult Performing Organization Address City/[facility]/ZIP Co de Phone Number [facility] [address] [place] [address], [place] [phone] * Beta hydroxybutyrate (07/22/2025 2:00 PM EST) Only the most recent of2 resultswithin the time period is included. Beta-Hydroxybu tyrate 0.9 0.2 - 2.8 mg/dL LAB CHEMISTRY METHOD 07/22/2025 2:52 PM EST [facility] Blood Venous blood specimen / Unknown Venipuncture / Unknown 07/22/2025 2:00 PM EST 07/22/2025 2:07 PM EST us Michelle Fernández MD LAB BLOOD ORDERABLES Final Res ult Performing Organization Address City/[facility]/ZIP Co de Phone Number [facility] [address] [place] [address], [place] [phone] * (ABNORMAL) CBC auto differential (07/22/2025 2:00 PM EST) Only the most recent of2 resultswithin the time period is included. WBC 14.2(H) 4.8 - 10.8 K/mcL LAB HEMETOLOGY METHOD 07/22/2025 2:16 PM EST [facility] RBC 5.10(H) 3.80 - 4.80 M/mcL LAB HEMETOLOGY METHOD 07/22/2025 2:16 PM EST [facility] Hemoglobin 14.8 11.5 - 16.0 g/dL LAB HEMETOLOGY METHOD 07/22/2025 2:16 PM EST [facility] Hematocrit 42.9 35.0 - 47.0 % LAB HEMETOLOGY METHOD 07/22/2025 2:16 PM [facility] MCV 84.6 79.0 - 98.0 [place] LAB HEMETOLOGY METHOD 07/22/2025 2:16 PM [facility] MCH 29.2 27.0 - 32.0 pcg LAB HEMETOLOGY METHOD 07/22/2025 2:16 PM [facility] MCHC 34.5 32.0 - 37.0 g/dL LAB HEMETOLOGY METHOD 07/22/2025 2:16 PM [facility] RDW 12.6 11.0 - 15.0 % LAB HEMETOLOGY METHOD 07/22/2025 2:16 PM [facility] Platelets 337 130 - 400 K/mcL LAB HEMETOLOGY METHOD 07/22/2025 2:16 PM [facility] MPV 11.2(H) 7.0 - 11.0 FL LAB HEMETOLOGY METHOD 07/22/2025 2:16 PM [facility] NRBC 0.0 <1.0 % LAB HEMETOLOGY METHOD 07/22/2025 2:16 PM [facility] NRBC Absolute 0.00 <0.10 K/mcL LAB HEMETOLOGY METHOD 07/22/2025 2:16 PM [facility] Neutrophils Relative 73.6 % LAB HEMETOLOGY METHOD 07/22/2025 2:16 PM [facility] Lymphocytes Relative 21.9 % LAB HEMETOLOGY METHOD 07/22/2025 2:16 PM [facility] Monocytes Relative 3.5 % LAB HEMETOLOGY METHOD 07/22/2025 2:16 PM [facility] Eosinophils Relative 0.3 % LAB HEMETOLOGY METHOD 07/22/2025 2:16 PM [facility] Basophils Relative 0.3 % LAB HEMETOLOGY METHOD 07/22/2025 2:16 PM EST [facility] Immature Granulocytes Relative 0.4 % LAB HEMETOLOGY METHOD 07/22/2025 2:16 PM EST [facility] Neutrophils Absolute 10.44(H) 1.50 - 7.00 K/mcL LAB HEMETOLOGY METHOD 07/22/2025 2:16 PM [facility] Lymphocytes Absolute 3.11 1.00 - 5.00 K/mcL LAB HEMETOLOGY METHOD 07/22/2025 2:16 PM EST [facility] Monocytes Absolute 0.49 0.20 - 1.00 K/mcL LAB HEMETOLOGY METHOD 07/22/2025 2:16 PM [facility] Eosinophils Absolute 0.04 0.00 - 0.50 K/mcL LAB HEMETOLOGY METHOD 07/22/2025 2:16 PM [facility] Basophils Absolute 0.04 0.00 - 0.20 K/mcL LAB HEMETOLOGY METHOD 07/22/2025 2:16 PM [facility] Immature Granulocytes Absolute 0.05(H) 0.00 - 0.03 K/mcL LAB HEMETOLOGY METHOD 07/22/2025 2:16 PM [facility] Blood Venous blood specimen / Unknown Venipuncture / Unknown 07/22/2025 2:00 PM EST 07/22/2025 2:07 PM EST us Michelle Fernández MD LAB BLOOD ORDERABLES Final Res ult [facility] [address] [place] [address], * (ABNORMAL) Osmolality (07/22/2025 2:00 PM EST) Only the most recent of2 resultswithin the time period is included. Osmolality Angelo 301(H) 280 - 300 mOsm/kg LAB CHEMISTRY METHOD 07/22/2025 3:06 PM EST [facility] Blood Venous blood specimen / Unknown Venipuncture / Unknown 07/22/2025 2:00 PM EST 07/22/2025 2:07 PM EST us Michelle Fernández MD LAB BLOOD ORDERABLES Final Res ult Performing Organization Address City/[facility]/ZIP Co de Phone Number [facility] [address] [place] [address], [place] [phone] * (ABNORMAL) Magnesium (07/22/2025 2:00 PM EST) Only the most recent of2 resultswithin the time period is included. Magnesium 1.7(L) 1.9 - 2.6 mg/dL LAB CHEMISTRY METHOD 07/22/2025 2:52 PM EST [facility] Blood Venous blood specimen / Unknown Venipuncture / Unknown 07/22/2025 2:00 PM EST 07/22/2025 2:07 PM EST us Michelle Fernández MD LAB BLOOD ORDERABLES Final Res ult Performing Organization Address [facility] de Phone Number [facility] [address] [place] [address], [place] [phone] * Lipase (07/22/2025 2:00 PM EST) Only the most recent of2 resultswithin the time period is included. Lipase 24 13 - 75 unit/L LAB CHEMISTRY METHOD 07/22/2025 2:33 PM EST [facility] Blood Venous blood specimen / Unknown Venipuncture / Unknown 07/22/2025 2:00 PM EST 07/22/2025 2:07 PM EST us Michelle Fernández MD LAB BLOOD ORDERABLES Final Res ult Performing Organization Address City/[facility]/ZIP Co de Phone Number [facility] [address] [place] [address], [place] [phone] * (ABNORMAL) Comprehensive metabolic panel (07/22/2025 2:00 PM EST) Only the most recent of2 resultswithin the time period is included. Sodium 132(L) 133 - 145 mmol/L LAB CHEMISTRY METHOD 07/22/2025 2:36 PM [facility] Potassium 4.1 3.5 - 5.5 mmol/L LAB CHEMISTRY METHOD 07/22/2025 2:36 PM [facility] Chloride 96 96 - 110 mmol/L LAB CHEMISTRY METHOD 07/22/2025 2:36 PM [facility] CO2 29 21 - 32 mmol/L LAB CHEMISTRY METHOD 07/22/2025 2:36 PM [facility] Anion Gap 7 3 - 11 LAB CHEMISTRY METHOD 07/22/2025 2:36 PM [facility] Glucose 351(H) 70 - 100 mg/dL LAB CHEMISTRY METHOD 07/22/2025 2:36 PM [facility] BUN 12 5 - 25 mg/dL LAB CHEMISTRY METHOD 07/22/2025 2:36 PM [facility] Creatinine 0.73 0.50 - 1.10 mg/dL LAB CHEMISTRY METHOD 07/22/2025 2:36 PM [facility] eGFR 91 >=60 mL/min/1. 73m2 LAB CHEMISTRY METHOD 07/22/2025 2:36 PM [facility] Comment:Calculation based on the Chronic Kidney Disease Epidemiology Collaboration (CKD-EPI) equation refit without adjustment for race. BUN/Creatinine Ratio 16.4 LAB CHEMISTRY METHOD 07/22/2025 2:36 PM [facility] Calcium 10.0 8.5 - 10.5 mg/dL LAB CHEMISTRY METHOD 07/22/2025 2:36 PM [facility] AST (SGOT) 16 10 - 42 unit/L LAB CHEMISTRY METHOD 07/22/2025 2:36 PM EST [facility] ALT (SGPT) 26 10 - 60 unit/L LAB CHEMISTRY METHOD 07/22/2025 2:36 PM EST [facility] Alkaline Phosphatase 92 42 - 121 unit/L LAB CHEMISTRY METHOD 07/22/2025 2:36 PM [facility] Total Protein 7.7 6.0 - 8.0 g/dL LAB CHEMISTRY METHOD 07/22/2025 2:36 PM EST [facility] Albumin 4.0 3.2 - 5.0 g/dL LAB CHEMISTRY METHOD 07/22/2025 2:36 PM [facility] Total Bilirubin 0.4 0.0 - 1.4 mg/dL LAB CHEMISTRY METHOD 07/22/2025 2:36 PM [facility] Blood Venous blood specimen / Unknown Venipuncture / Unknown 07/22/2025 2:00 PM EST 07/22/2025 2:07 PM EST Michelle Fernández MD LAB BLOOD ORDERABLES Final Res ult [facility] [address] [place] [address], * ECG-Annotated (07/11/2025) us Provider Onbase ECG ORDERABLES Final Result * ECG 12 lead (07/10/2025 9:27 PM EDT) Ventricular Rate ECG 101 BPM GEMUSE Atrial Rate 101 BPM GEMUSE P-R Interval 192 ms GEMUSE QRS Duration 74 ms GEMUSE Q-T Interval 360 ms GEMUSE QTc 466 ms GEMUSE P Wave [place] 41 degrees GEMUSE R [place] 18 degrees GEMUSE T [place] 28 degrees GEMUSE ECG Interpretation Sinus tachycardia Otherwise normal ECG No previous ECGs available Confirmed by MD Cortes Christopher ([id number]) on 07/11/2025 9:09:24 PM GEMUSE 07/10/2025 9:27 PM EDT 07/11/2025 9:09 PM EDT us Rae LOWERY ECG ORDERABLES Final Re sult GEMUSE from Last 3 Months Insurance MEDICARE Care Teams Creel Operator Relationship Specialty Start Date End Date Physician, No Pcp PCP - General 07/08/25
--- OUTSIDE RECORDS SUMMARY | 2025-07-30 14:06 | XMS_ITS | Encounter Summary ---
Author Organization [facility], Address [address] [place] [address] Phone Care Team Providers Care Industrial X Ray Operator Name Role Phone Herberth Gutierrez MD Primary Care Provider [phone] Encounter Details Date Type Department Care Team (Late st Contact Info) Description 03/02/2020 Telephone [facility] - [facility] [address] [place] [address] Ema Colin [address] [place] [id number] Social History Tobacco Use Types Packs/Day Years [...] on filedocumented in this encounter Care Teams Industrial X Ray Operator Relationship Specialty Start Date End Date Herberth Gutierrez MD [facility] [address] [place] [address] [address] [place], [place] PCP - General Internal Medicine 03/10/20 documented as of this encounter
--- OUTSIDE RECORDS SUMMARY | 2025-07-30 14:06 | XMS_ITS | Patient Health Record ---
Author Organization [facility] Address [address] [place] [phone] Care Team Providers Care Finished Hardware Erector Name Role Phone NO, PCP Primary Care Provider [facility], Nursing Unavailable [phone] [facility], CHW Unavailable [phone] Migration, Provider Unavailable Unavailable Allergies Allergen (clinical [...] Active Encounters Encounter Location Date Provider Diagnosis [address] [phone] 07/07/[address] [address] [phone] 05/24/2025 Provider Migration Plan Of Treatment Next Appt Details Provider Name:Leigh Yue boo, 08/04/2025 10:00:00 AM, [address] [place] [address], [phone], Insurance Providers Payer Name Payer Address Payer Phone Subscriber Number Group Number Insured Name Patient Relationship to Insured Coverage Start Date Coverage End Date [place] Medicare Part [place] [employer] [address] [place] [address] [id number] Kathy Betts (Jeni) Self - patient is the insured 5 6 [place] Medicaid Standard [address] [place] [address] [id number] Cornell Dunham Natural Child - Insured does not have Financial Responsibility (includes legally adopted child) 5 Medical (General) History Medical History History ICD Code depression
--- OUTSIDE RECORDS SUMMARY | 2025-07-30 14:06 | XMS_ITS | Clinical Summary ---
Author Organization [facility] Address [address] [place] [address], [place] [address] Care Team Providers Care Traffic Line Painter Name Role Phone Herberth Gutierrez MD Primary Care Provider [phone]- [phone] Social History Tobacco Use Types Packs/Day Years [...] age to complete this topic Insurance [address] [place] [address] [employer] Care Teams Traffic Line Painter Relationship Specialty Start Date End Date Herberth Gutierrez MD [facility] [address] [place] [address] [address] [place], [place] PCP - General Internal Medicine 03/10/20
== END 2025-07-30 06:35 | disposition home or self-care (01) ==
PROVIDERS: Physician Assistant Medical; Emergency Provider Emergency Medicine
DX: K52.9 Noninfective gastroenteritis and colitis, unspecified (principal); R60.9 Edema, unspecified; E11.65 Type 2 diabetes mellitus with hyperglycemia; Z87.440 Personal history of urinary (tract) infections; Z59.02 Unsheltered homelessness; Z03.818 Encounter for observation for suspected exposure to other biological agents ruled out
CPT/HCPCS: 74177; 80048; 80076; 81001; 82947; 83880; 84484; 85025; 87637; 93005; 99285; Q9967

== ENCOUNTER → 2025-07-29 18:33 | Outpatient (BNV) | payer MEDICARE, MEDICAID, SELFPAY | PROVIDERS: Emergency Provider Emergency Medicine; Visit Provider Internal Medicine | DX: R94.31 Abnormal electrocardiogram [ECG] [EKG] (principal); R00.2 Palpitations | CPT/HCPCS: 93010 ==

== ENCOUNTER → 2025-07-30 00:01 | Outpatient (BNV) | payer MEDICARE, MEDICAID, SELFPAY | PROVIDERS: Emergency Provider Emergency Medicine; Visit Provider Student in an Organized Health Care Education/Training Program | DX: K63.89 Other specified diseases of intestine (principal) | CPT/HCPCS: 74177 ==